=== PATIENT | male | born 1945 | race Caucasian/White ===

== ENCOUNTER → 2016-06-21 | Outpatient (CLI) | payer MEDICARE ==
[2015-11-25 12:00] VITALS: BP 106/69
[~2016-06-21] MED LIST: ALFU10TA3 PO; ALLO100T PO; ALLO300T PO; ALPR0.254 PO; AMIT25TA PO; AMLO10TA2 PO; AMLO5TAB2 PO; ASPI81TA9 PO; ATOR10TA60 PO; BUSP10TA PO; BUSP5TAB PO; CARI350T14 PO; CELE200C PO; CITA20TA9 PO; CLON0.2T PO; CLON0.5T3 PO; CLOP75TA PO; CLOP75TA27 PO; COLC0.6T34 PO; DIGO0.25 PO; DIGO125T PO; DIGO250T PO; FURO-68 PO; FURO40TA4 PO; IBUP200T77 PO; LABE200T2 PO; LEUP30SY IM; LEVO25TA4 PO; LEVO500T38 PO; LEVO50TA PO; LEVO50TA5 PO; LISI1TAB5 PO; MINO10TA PO; OXYC-323 PO; PRED-220 PO; PROP150T2 PO; PROVENTIL HFA6.7 GM IH; THEO400T2 PO
--- NOTE | 2016-06-21 16:16 | RAD ---
CT of the chest without contrast, 06/21/2016: History: Interstitial lung disease, COPD Noncontrast scans were obtained and compared to a study from 03/04/2016. There are moderate reticular opacities involving primarily the periphery of both lungs. There is a lesser groundglass component. Mild bronchiectasis is present medially in the left upper lobe. The findings are compatible with interstitial lung disease/fibrosis and are unchanged since 03/04/2016. No new pulmonary opacities are seen. A calcified granuloma is present in the left upper lobe. There is no evidence of pleural fluid. An unhealed median sternotomy is evident. There are extensive coronary artery calcifications. There is moderate calcific plaquing of the thoracic aorta. Small mediastinal lymph nodes are present without definite pathologic enlargement. Several small intrarenal calculi and renal vascular calcifications are present. A 3 cm cyst is present in the left kidney. Moderate multilevel degenerative changes are present in the spine. IMPRESSION: 1. Chronic interstitial lung disease and fibrosis, unchanged since 03/04/2016. 2. Extensive coronary artery disease. PQRS Compliance Statement: One or more of the following individualized dose reduction techniques were utilized for this examination: 1. Automated exposure control 2. Adjustment of the mA and/or kV according to patient size 3. Use of iterative reconstruction technique
== END | disposition home or self-care (01) ==
LOC: CT 12:25
PROVIDERS: ATTEND Internal Medicine Critical Care Medicine
DX: J84.9 Interstitial pulmonary disease, unspecified (principal); J44.9 Chronic obstructive pulmonary disease, unspecified; I25.10 Atherosclerotic heart disease of native coronary artery without angina pectoris
CPT/HCPCS: 71250

== ENCOUNTER → 2017-01-06 | Outpatient (CLI) | payer MEDICARE ==
[2015-11-25 12:00] VITALS: BP 106/69
[~2017-01-06] MED LIST changes: +ASPI-612 PO; -ASPI81TA9 PO; -CLOP75TA27 PO; +CLOP75TA57 PO; -LEVO500T38 PO; +LEVO500T59 PO
--- NOTE | 2017-01-06 10:28 | RAD ---
INDICATION: Interstitial lung disease COMPARISON: 06/21/2016 TECHNIQUE: Axial CT images obtained through the chest. No intravenous contrast. FINDINGS: Poststernotomy changes again seen. Severe coronary artery calcific atherosclerosis. Repeat demonstration of interstitial changes to the lungs with peripheral reticulation as well as some suspected regions of fibrosis. Overall severity is similar prior. Partially visualized liver appears low-attenuation. Heterogenous attenuation within the liver. Gallstones are suspected. 39 mm suspected cystic lesion left kidney. There are some suspected nonobstructive renal stones at partially visualized abdomen. Severe calcific atherosclerosis. There are some scattered mildly prominent lymph nodes in the mediastinum. For example mildly enlarged lymph node is again seen in precarinal region measuring 11 mm short axis. Degenerative changes of the spine. Mild L1 compression deformity again seen. IMPRESSION: 1. Repeat demonstration of chronic interstitial lung disease which overall appears similar in severity when compared to June 2016. The severity appears slightly increased when compared to 2013. 2. Heterogenous attenuation of the liver partially seen. This could be secondary to geographic regions of focal fat but if the patient has any history or risk factors for neoplasm a follow-up CT or MRI liver protocol could further evaluate to ensure that there is not an infiltrative hepatic lesion. 3. Suspected bilateral nonobstructive renal stones and left renal cystic lesion at partially visualized kidneys. PQRS Compliance Statement: One or more of the following individualized dose reduction techniques were utilized for this examination: 1. Automated exposure control 2. Adjustment of the mA and/or kV according to patient size 3. Use of iterative reconstruction technique
== END | disposition home or self-care (01) ==
LOC: CT 07:09
PROVIDERS: ATTEND Internal Medicine Critical Care Medicine
DX: J84.9 Interstitial pulmonary disease, unspecified (principal); M47.896 Other spondylosis, lumbar region; N20.0 Calculus of kidney; I70.8 Atherosclerosis of other arteries; R59.9 Enlarged lymph nodes, unspecified
CPT/HCPCS: 71250

== ENCOUNTER → 2018-01-02 | Outpatient (CLI) | payer OTHER ==
[2015-11-25 12:00] VITALS: BP 106/69
[~2018-01-02] MED LIST changes: -AMLO10TA2 PO; +AMLO10TA6 PO; -AMLO5TAB2 PO; +AMLO5TAB7 PO; +CLON0.5T11 PO; -CLON0.5T3 PO; -LABE200T2 PO; +LABE200T4 PO; +LISI1TAB7 PO
--- NOTE | 2018-01-02 16:40 | RAD ---
CT of the chest without contrast, 01/02/2018: HISTORY: Interstitial lung disease. Noncontrast scans were obtained as requested and compared to a study from 01/06/2017. There is moderate calcific plaquing of the thoracic aorta with mild unchanged dilatation of the ascending aorta. Extensive coronary artery calcifications are present. The heart is mildly enlarged. Mediastinal lymph nodes of borderline size are stable. There are moderate reticular opacities involving primarily the periphery of both lungs. There are also patchy groundglass opacities bilaterally. Mild bronchiectasis is present in the left upper lobe. The findings are compatible with chronic interstitial lung disease/fibrosis and have shown no definite change since 01/06/2017. Granulomatous calcifications are present in the left chest. No acute pulmonary consolidation or mass is evident. No pleural fluid has developed. Several small bilateral intrarenal calculi are again noted. There is a small left renal cyst. Moderate multilevel degenerative changes are present in the spine. IMPRESSION: 1. Moderate chronic interstitial lung disease/fibrosis, unchanged since 01/06/2017. 2. Cardiomegaly with aortic atherosclerosis and extensive coronary artery calcifications. PQRS Compliance Statement: One or more of the following individualized dose reduction techniques were utilized for this examination: 1. Automated exposure control 2. Adjustment of the mA and/or kV according to patient size 3. Use of iterative reconstruction technique Electronically signed by: Malik Butler MD (01/02/2018 4:37 PM) [facility]
== END | disposition home or self-care (01) ==
LOC: CT 16:19
PROVIDERS: ATTEND Internal Medicine Critical Care Medicine
DX: I25.10 Atherosclerotic heart disease of native coronary artery without angina pectoris (principal); I70.0 Atherosclerosis of aorta; I51.7 Cardiomegaly; N28.1 Cyst of kidney, acquired; N20.0 Calculus of kidney
CPT/HCPCS: 71250

== ENCOUNTER → 2018-01-19 | Outpatient (CLI) | payer OTHER ==
[2015-11-25 12:00] VITALS: BP 106/69
[~2018-01-19] MED LIST changes: +ZOLPIDEM 5 MG TABLET. PO ONE
--- NOTE | 2018-01-20 10:10 | SLEEP ---
DATE OF STUDY: 01/19/2018 SLEEP STUDY DATE OF STUDY: 01/19/2018. ATTENDING PHYSICIAN: Dr. Maye Mueller. The patient is 72 years old who weighs 204 pounds with a BMI of 30. The patient's Cavour score was 11. The patient had sleep study 5 years ago and was diagnosed with RYANNE and has been on 14 cm CPAP, but does not wear it. Another split-night study was performed. During the night study, the patient spent 410 minutes in bed and slept for 229 minutes with a low sleep efficiency of 56%. Sleep latency was 46 minutes with a REM latency of 283 minutes. Overall, sleep architecture showed normal stage 1 sleep, increased stage 2 sleep, absent slow wave and reduced REM sleep, which was 10% of the total sleep time. During the initial diagnostic portion of the study, the patient slept for 77 minutes. During that time, there were no obstructive mixed or central apneas, but 60 hypopneas. The patient's AHI for the diagnostic portion was 47 per hour, with a supine AHI of 47 per hour as well and REM sleep was not observed. EKG monitoring revealed normal sinus rhythm with an average heart rate of 83 beats per minute. PVCs were seen throughout. Nocturnal oximetry study revealed an average oxygen saturation was 87%, the lowest was 78%; 33% of time, oxygen saturation remained between 80% and 89%. PLMS were seen at index of 14 per hour and 2 per hour caused EEG arousals. The patient met the criteria for CPAP initiation. He was unable to tolerate CPAP pressure of less than 14 cm water. At a final CPAP pressure of 17 cm water, the patient slept for 90 minutes. The patient had supine sleep throughout and REM sleep was also observed. The patient's AHI was reduced to 0 per hour and oxygen saturation remained above 90%. The patient used medium-sized full-face mask. IMPRESSION: 1. Severe sleep apnea-hypopnea syndrome with an apnea-hypopnea index of 47 per hour. 2. Nocturnal hypoxia secondary to obstructive sleep apnea, but resolved with CPAP. 3. Abnormal EKG with premature ventricular contractions seen throughout, but no sustained arrhythmias observed. 4. Mild periodic limb movements of sleep without any significant EEG arousals. This does not need to be treated. RECOMMENDATIONS: 1. CPAP at 17 cm water completely eliminated the patient's sleep apnea and should be used on a nightly basis. 2. Follow up in 4-6 weeks to assess compliance with CPAP and to document clinical improvement. 3. Weight loss is strongly advised. 4. Avoid [employer] depressants. 5. Cautioned regarding driving until symptoms of sleep apnea resolve with the use of CPAP. 6. Follow up with Cardiology if clinically indicated regarding abnormal EKG. LINDY TORRES MD DR: ARIE/velia JOB#: [id number] / [id number] MAYE Fung MD
== END | disposition home or self-care (01) ==
LOC: SLPLAB 18:26
PROVIDERS: ATTEND Internal Medicine Critical Care Medicine
DX: G47.33 Obstructive sleep apnea (adult) (pediatric) (principal); G47.34 Idiopathic sleep related nonobstructive alveolar hypoventilation; G47.61 Periodic limb movement disorder; R94.31 Abnormal electrocardiogram [ECG] [EKG]
CPT/HCPCS: 95810

== ENCOUNTER → 2018-01-21 | Outpatient (CLI) | payer OTHER ==
[2015-11-25 12:00] VITALS: BP 106/69
[~2018-01-21] MED LIST changes: -ZOLPIDEM 5 MG TABLET. PO ONE
[2018-01-21 11:06] LABS: CALCIUM 9.7 mg/dL (8.5-10.1); CREATININE 1.1 mg/dL (0.7-1.3); POTASSIUM 3.6 mmol/L (3.5-5.1)
== END | disposition home or self-care (01) ==
LOC: LAB 10:28
PROVIDERS: ATTEND Internal Medicine Nephrology
DX: I11.0 Hypertensive heart disease with heart failure (principal); I50.9 Heart failure, unspecified; I25.5 Ischemic cardiomyopathy; Z68.27 Body mass index [BMI] 27.0-27.9, adult
CPT/HCPCS: 36415; 80048

== ENCOUNTER 2018-02-09 10:19 | Observation (INO) | payer OTHER ==
[~2018-02-09] VITALS: Ht 175.3 cm; Wt 92.5 kg
[~2018-02-09 10:19] MED LIST changes: -OXYC-323 PO; +OXYC1TAB15 PO
--- NOTE | 2018-02-09 10:41 | PHYS DOC ---
Past Medical History Past Medical History: Anxiety, Cancer, CHF, COPD, Hypertension, Hypothyroid, Kidney Stone, [place], Vascular Disease, Other Additional Past Medical Histor: PROSTATE CA, GOUT Past Surgical History: Coronary Bypass Surgery, Other Additional Past Surgical Histo: STENTS, right shoulder surgery Alcohol Use: Rarely Drug Use: None Adult General Chief Complaint Chief Complaint: CHEST PAIN HPI HPI Patient is a 72-year-old white male with a past history of coronary artery disease, who presents to the emergency department for evaluation. The patient states that for the past 3 days he has been having intermittent chest pressure, radiating to her shoulders bilaterally, worse with exertion. He has had increased shortness of breath. Has not had any nausea or vomiting. His pain is improved this morning. Exertion seems to worsen his pain, rest seems to relieve his pain. He was recently started on oxygen due to interstitial lung disease. He states the pain feels somewhat similar to his prior cardiac episodes. He has not had any alleviating or exacerbating factors to his symptoms other than as mentioned above. Review of Systems Review of Systems Constitutional: Denies fever or chills [] Eyes: Denies change in visual acuity, redness, or eye pain [] HENT: Denies nasal congestion or sore throat [] Respiratory: Denies cough or pleuritic pain.[] Cardiovascular: No additional information not addressed in HPI [] GI: Denies abdominal pain, nausea, vomiting, bloody stools or diarrhea [] : Denies dysuria or hematuria [] Musculoskeletal: Denies back pain or joint pain [] Integument: Denies rash or skin lesions [] Neurologic: Denies headache, focal weakness or sensory changes [] Endocrine: Denies polyuria or polydipsia [] All other systems were reviewed and found to be within normal limits, except as documented in this note. Current Medications Current Medications Current Medications Medications (Trade) Dose Ordered Sig/Susu Start Time Stop Time Status Last Admin Dose Admin Aspirin (Children'S Aspirin) 324 mg 1X ONCE 02/09/18 10:45 02/09/18 10:46 DC 02/09/18 11:06 324 MG Nitroglycerin (Nitro-Bid Oint) 1 inch 1X ONCE 02/09/18 10:45 02/09/18 10:46 DC 02/09/18 11:07 1 INCH Allergies Allergies Allergies Coded Allergies Type Severity Reaction Last Updated Verified tamsulosin Adverse Reaction Intermediate Nausea and Vomiting 11/17/15 Yes Physical Exam Physical Exam PHYSICAL EXAM: CONSTITUTIONAL: Well developed, well nourished HEAD: normocephalic, atraumatic EENT: PERRL, EOMI. Conjunctivae normal color, sclerae non-icteric; moist mucous membranes. NECK: Supple, non-tender; no meningismus. LUNGS: Scattered crackles in all lung contreras, consistent with the patient's history of interstitial lung disease, breathing even and unlabored. Normal air movement. HEART: Regular rate and rhythm, no murmur CHEST: No deformity; non-tender ABDOMEN: The abdomen is soft, and non-tender, no masses or bruits. EXTREM: Normal ROM; no deformity, no calf tenderness. Normal pulses palpable in all extremities. There is no pedal edema. SKIN: No rash; no diaphoresis NEURO: Alert; normal speech and cognition; CN's grossly intact; strength grossly intact without focal deficit. BACK: No CVA TTP. Current Patient Data Vital Signs Vital Signs Date Time Temp Pulse Resp B/P (MAP) Pulse Ox O2 Delivery O2 Flow Rate FiO2 02/09/18 11:09 92 16 114/70 (85) 97 Nasal Cannula 2.0 Lab Values Laboratory Tests Test 02/09/18 10:35 White Blood Count 7.3 x10^3/uL (4.0-11.0) Red Blood Count 4.38 x10^6/uL (4.30-5.70) Hemoglobin 15.0 g/dL (13.0-17.5) Hematocrit 43.3 % (39.0-53.0) Mean Corpuscular Volume 99 fL (79-100) Mean Corpuscular Hemoglobin 34 pg (25-35) Mean Corpuscular Hemoglobin Concent 35 g/dL (31-37) Red Cell Distribution Width 15.0 % (11.5-14.5) H Platelet Count 118 x10^3/uL (140-400) L Neutrophils (%) (Auto) 72 % (31-73) Lymphocytes (%) (Auto) 13 % (24-48) L Monocytes (%) (Auto) 9 % (0-9) Eosinophils (%) (Auto) 6 % (0-3) H Basophils (%) (Auto) 0 % (0-3) Neutrophils # (Auto) 5.3 x10^3uL (1.8-7.7) Lymphocytes # (Auto) 0.9 x10^3/uL (1.0-4.8) L Monocytes # (Auto) 0.7 x10^3/uL (0.0-1.1) Eosinophils # (Auto) 0.4 x10^3/uL (0.0-0.7) Basophils # (Auto) 0.0 x10^3/uL (0.0-0.2) Platelet Estimate Decreased (ADEQUATE) Large Platelets Few Poikilocytosis Slight Anisocytosis Slight Tear Drop Cells Occ Sodium Level 138 mmol/L (136-145) Potassium Level 3.4 mmol/L (3.5-5.1) L Chloride Level 100 mmol/L (98-107) Carbon Dioxide Level 28 mmol/L (21-32) Anion Gap 10 (6-14) Blood Urea Nitrogen 18 mg/dL (8-26) Creatinine 1.2 mg/dL (0.7-1.3) Estimated GFR (Cockcroft-Gault) 59.7 BUN/Creatinine Ratio 15 (6-20) Glucose Level 165 mg/dL (70-99) H Calcium Level 9.1 mg/dL (8.5-10.1) Total Bilirubin 0.5 mg/dL (0.2-1.0) Aspartate Amino Transferase (AST) 16 U/L (15-37) Alanine Aminotransferase (ALT) 34 U/L (16-63) Alkaline Phosphatase 118 U/L (46-116) H Creatine Kinase 70 U/L (39-308) Creatine Kinase MB (Mass) 1.4 ng/mL (0.0-3.6) Creatine Kinase MB Relative Index % (0-4) Troponin I Quantitative 0.017 ng/mL (0.000-0.055) AV-Yux-M-Type Natriuretic Peptide 387 pg/mL (0-124) H Total Protein 6.8 g/dL (6.4-8.2) Albumin 3.8 g/dL (3.4-5.0) Albumin/Globulin Ratio 1.3 (1.0-1.7) Laboratory Tests 02/09/18 10:35 Laboratory Tests 02/09/18 10:35 EKG EKG [Normal sinus rhythm at a rate of 73 bpm, left axis deviation, normal intervals , nonspecific ST/T changes, with lateral T wave inversion in the limb leads. EKG is not significant change compared to patient's prior EKG from 2016.] Radiology/Procedures Radiology/Procedures [PROCEDURE: PORTABLE CHEST 1V EXAM: AP View of the chest DATE: 02/09/2018 10:35 AM INDICATION: CHEST PAIN FOR THREE DAYS COMPARISON: Chest CT 01/02/2018 chest radiograph 12/19/2015 FINDINGS/ IMPRESSION: Cardiomediastinal silhouette is stable. Bilateral diffuse interstitial opacities, grossly similar to prior CT. No definite superimposed lobar consolidation is identified. Left upper lobe calcified granuloma is seen. No pleural effusion or pneumothorax.] Course & Med Decision Making Course & Med Decision Making Pertinent Labs and Imaging studies reviewed. (See chart for details) [11:35 AM: The patient's condition remains stable. He is pain-free now. I discussed case with his PCP, who will admit the patient for further evaluation. I also spoke with Dr. Guardado will see the patient as well.] Dragon Disclaimer Dragon Disclaimer This electronic medical record was generated, in whole or in part, using a voice recognition dictation system. Departure Departure Impression: Primary Impression: Chest pain Additional Impression: CAD (coronary artery disease) Disposition: ADMITTED INPATIENT Condition: STABLE Referrals: MAYE WHITT MD (PCP) Problem Qualifiers MAYE ARTEAGA MD Feb 09, 2018 10:41
--- NOTE | 2018-02-09 10:44 | EKG ---
[facility] [address] [place] [address] Test Date: 2018-02-09 Test Time: 10:26:59 Pat Name: KRYSTIAN VELEZ Department: Room: Gender: M Boat Captain: : 1945 Requested By: MAYE ARTEAGA Order Number: [id number] Reading MD: Matteo Goodrich Measurements Intervals Uriah Rate: 72 P: -90 OH: 184 QRS: -51 QRSD: 108 T: 119 QT: 410 QTc: 455 Interpretive Statements SINUS RHYTHM PROLONGED OH INTERVAL ABNORMAL LEFT AXIS DEVIATION INCOMPLETE RIGHT BUNDLE BRANCH BLOCK LVH WITH REPOLARIZATION ABNORMALITY QRS(T) CONTOUR ABNORMALITY CONSIDER ANTEROLATERAL MYOCARDIAL DAMAGE ABNORMAL ECG Electronically Signed On 02-09-2018 11:09:02 DISPATCH OFFICER by Matteo Goodrich
[2018-02-09] MEDS ORDERED: ASPIRIN CHEWABLE 81 MG TABLET. PO ONE (10:45)
[2018-02-09] MEDS ORDERED: NITROGLYCERIN OINT 1 GM PACKET. TP ONE (10:45)
[2018-02-09 10:49] LABS: BASO % 0 % (0-3); EOS # 0.4 x10^3/uL (0.0-0.7); EOS % 6 % (0-3); HEMATOCRIT 43.3 % (39.0-53.0); LYMPH # 0.9 x10^3/uL (1.0-4.8); LYMPH % 13 % (24-48); MEAN CORPUSCULAR HEMOGLOBIN 34 pg (25-35); MEAN CORPUSCULAR HGB CONC 35 g/dL (31-37); MEAN CORPUSCULAR VOLUME 99 fL (79-100); MONO # 0.7 x10^3/uL (0.0-1.1); MONO % 9 % (0-9); NEUT # 5.3 x10^3uL (1.8-7.7); NEUT % 72 % (31-73); PLATELET COUNT 118 x10^3/uL (140-400); RED BLOOD COUNT 4.38 x10^6/uL (4.30-5.70); WHITE BLOOD COUNT 7.3 x10^3/uL (4.0-11.0)
[2018-02-09 11:03] LABS: CALCIUM 9.1 mg/dL (8.5-10.1); CREATININE 1.2 mg/dL (0.7-1.3); GFR 59.7; POTASSIUM 3.4 mmol/L (3.5-5.1)
[2018-02-09 11:09] LABS: ALBUMIN 3.8 g/dL (3.4-5.0); ALBUMIN/GLOBULIN RATIO 1.3 (1.0-1.7); TOTAL BILIRUBIN 0.5 mg/dL (0.2-1.0); TOTAL PROTEIN 6.8 g/dL (6.4-8.2)
[2018-02-09 11:17] LABS: CREATINE KINASE 70 U/L (39-308)
--- NOTE | 2018-02-09 11:23 | RAD ---
EXAM: AP View of the chest DATE: 02/09/2018 10:35 AM INDICATION: CHEST PAIN FOR THREE DAYS COMPARISON: Chest CT 01/02/2018 chest radiograph 12/19/2015 FINDINGS/ IMPRESSION: Cardiomediastinal silhouette is stable. Bilateral diffuse interstitial opacities, grossly similar to prior CT. No definite superimposed lobar consolidation is identified. Left upper lobe calcified granuloma is seen. No pleural effusion or pneumothorax. Electronically signed by: Armando Michelle MD (02/09/2018 11:19 AM) [id number]
[2018-02-09 11:25] LABS: PLT ESTIMATE DECREASED (ADEQUATE)
[2018-02-09 11:26] LABS: ANISOCYTOSIS SLIGHT; POIKILOCYTOSIS SLIGHT; TEAR DROP CELLS OCC
--- NOTE | 2018-02-09 12:33 | PDOC2 ---
CONSULT Date of Consult Date of Consult DATE: 02/09/18 TIME: 12:30 Reason for Consult Reason for Consult: Chest pain Referring Physician Referring Physician: Alvarado Brennan MD Identification/Chief Complaint Problems: (1) Chest pain History of Present Illness Reason for Visit: Mr. Tillman, 72yo M, presents to ER with chest pain that started on ( Feb 05). His chest pain started while he was working on his yard doing his house chore, and came with his hands turning blue. He described that the pain had been intense and constant radiating to his left arm for couple days, and improved from Friday till this morning. This morning, there is minimal pain that is not constant. He has been resting and taking oxygen/medication at home which made it better. The pain is similar to what he had 2016 when he had bypass surgery. Also complains of cough with sputum, SOB and lightheadedness but denies n/v/d Past Medical History Cardiovascular: CAD, CHF, HTN, [place], Hyperlipidemia Pulmonary: Bronchitis, COPD, Pneumonia, Other (interstitial lung disease) GI: GERD Musculoskeletal: Osteoarthritis Rheumatologic: Gout Renal/: Prostate Ca. Past Surgical History Past Surgical History: CABG ("6-way bypass" (2016)), Other (R. shoulder replacement) Social History Quit (quit 2016. 40 ppd previously) ALCOHOL: rare Drugs: None Lives: with Family Current Problem List Problem List Problems Medical Problems: (1) CAD (coronary artery disease) Status: Acute (2) Chest pain Status: Acute Current Medications Current Medications Current Medications Aspirin (Children'S Aspirin) 324 mg 1X ONCE PO Last administered on at 11:06; Start 02/09/18 at 10:45; Stop 02/09/18 at 10:46; Status DC Nitroglycerin (Nitro-Bid Oint) 1 inch 1X ONCE TP Last administered on at 11:07; Start 02/09/18 at 10:45; Stop 02/09/18 at 10:46; Status DC Active Scripts Active Reported Prednisone (Prednisone) 10 Mg Tablet 10 Mg PO 1/2TAB DAILY Lisinopril-Hctz 20-25 Mg Tab (Lisinopril/Hydrochlorothiazide) 1 Each Tablet 1 Tab PO DAILY Lasix (Furosemide) 40 Mg Tablet 40 Mg PO DAILY Buspirone Hcl 5 Mg Tablet 5 Mg PO 3TABS PO DAILY Carisoprodol 350 Mg Tablet 350 Mg PO 3TABS PO DAILY PRN Clopidogrel (Clopidogrel Bisulfate) 75 Mg Tablet 75 Mg PO DAILY Propafenone Hcl 150 Mg Tablet 150 Mg PO BID Amlodipine Besylate 5 Mg Tablet 5 Mg PO DAILY Clonidine Hcl 0.2 Mg Tablet 0.2 Mg PO 3TABS PO DAILY Synthroid (Levothyroxine Sodium) 50 Mcg Tablet 1 Tab PO DAILY Lisinopril-Hctz 20-12.5 Mg Tab (Lisinopril/Hydrochlorothiazide) 1 Each Tablet 1 Tab PO HS Allopurinol 100 Mg Tablet 1 Tab PO DAILY Atorvastatin Calcium 10 Mg Tablet 10 Mg PO HS Allopurinol 300 Mg Tablet 1 Tab PO HS Clonazepam 0.5 Mg Tablet 0.5 Mg PO 1 1/2 TABS PO DAILY Celexa (Citalopram Hydrobromide) 20 Mg Tablet 20 Mg PO DAILY Amitriptyline Hcl 25 Mg Tablet 25 Mg PO HS Alprazolam 0.25 Mg Tablet 0.25 Mg PO QID Celebrex (Celecoxib) 200 Mg Capsule 200 Mg PO 2TABS PO DAILY Allergies Allergies: Coded Allergies: tamsulosin (Verified Adverse Reaction, Intermediate, Nausea and Vomiting, 11/17/15) ROS Respiratory: YES: Cough (w/ sputum), Shortness of breath Cardiovascular: yes Chest Pain Physical Exam General: Alert, Oriented X3, Cooperative Lungs: Clear to auscultation (on oxygen), Normal air movement Heart: Regular rate, Normal S1, Normal S2, No murmurs MUSCULOSKELETAL: No swelling, No muscular tenderness noted Vitals VITALS Vital Signs Date Time Temp Pulse Resp B/P (MAP) Pulse Ox O2 Delivery O2 Flow Rate FiO2 02/09/18 11:09 92 16 114/70 (85) 97 Nasal Cannula 2.0 Labs Labs Laboratory Tests Test 02/09/18 10:35 White Blood Count 7.3 x10^3/uL (4.0-11.0) Red Blood Count 4.38 x10^6/uL (4.30-5.70) Hemoglobin 15.0 g/dL (13.0-17.5) Hematocrit 43.3 % (39.0-53.0) Mean Corpuscular Volume 99 fL (79-100) Mean Corpuscular Hemoglobin 34 pg (25-35) Mean Corpuscular Hemoglobin Concent 35 g/dL (31-37) Red Cell Distribution Width 15.0 % (11.5-14.5) Platelet Count 118 x10^3/uL (140-400) Neutrophils (%) (Auto) 72 % (31-73) Lymphocytes (%) (Auto) 13 % (24-48) Monocytes (%) (Auto) 9 % (0-9) Eosinophils (%) (Auto) 6 % (0-3) Basophils (%) (Auto) 0 % (0-3) Neutrophils # (Auto) 5.3 x10^3uL (1.8-7.7) Lymphocytes # (Auto) 0.9 x10^3/uL (1.0-4.8) Monocytes # (Auto) 0.7 x10^3/uL (0.0-1.1) Eosinophils # (Auto) 0.4 x10^3/uL (0.0-0.7) Basophils # (Auto) 0.0 x10^3/uL (0.0-0.2) Platelet Estimate Decreased (ADEQUATE) Large Platelets Few Poikilocytosis Slight Anisocytosis Slight Tear Drop Cells Occ Sodium Level 138 mmol/L (136-145) Potassium Level 3.4 mmol/L (3.5-5.1) Chloride Level 100 mmol/L (98-107) Carbon Dioxide Level 28 mmol/L (21-32) Anion Gap 10 (6-14) Blood Urea Nitrogen 18 mg/dL (8-26) Creatinine 1.2 mg/dL (0.7-1.3) Estimated GFR (Cockcroft-Gault) 59.7 BUN/Creatinine Ratio 15 (6-20) Glucose Level 165 mg/dL (70-99) Calcium Level 9.1 mg/dL (8.5-10.1) Total Bilirubin 0.5 mg/dL (0.2-1.0) Aspartate Amino Transf (AST/SGOT) 16 U/L (15-37) Alanine Aminotransferase (ALT/SGPT) 34 U/L (16-63) Alkaline Phosphatase 118 U/L (46-116) Creatine Kinase 70 U/L (39-308) Creatine Kinase MB (Mass) 1.4 ng/mL (0.0-3.6) Creatine Kinase MB Relative Index % (0-4) Troponin I Quantitative 0.017 ng/mL (0.000-0.055) IB-Fhg-F-Type Natriuretic Peptide 387 pg/mL (0-124) Total Protein 6.8 g/dL (6.4-8.2) Albumin 3.8 g/dL (3.4-5.0) Albumin/Globulin Ratio 1.3 (1.0-1.7) Laboratory Tests Test 02/09/18 10:35 White Blood Count 7.3 x10^3/uL (4.0-11.0) Red Blood Count 4.38 x10^6/uL (4.30-5.70) Hemoglobin 15.0 g/dL (13.0-17.5) Hematocrit 43.3 % (39.0-53.0) Mean Corpuscular Volume 99 fL (79-100) Mean Corpuscular Hemoglobin 34 pg (25-35) Mean Corpuscular Hemoglobin Concent 35 g/dL (31-37) Red Cell Distribution Width 15.0 % (11.5-14.5) Platelet Count 118 x10^3/uL (140-400) Neutrophils (%) (Auto) 72 % (31-73) Lymphocytes (%) (Auto) 13 % (24-48) Monocytes (%) (Auto) 9 % (0-9) Eosinophils (%) (Auto) 6 % (0-3) Basophils (%) (Auto) 0 % (0-3) Neutrophils # (Auto) 5.3 x10^3uL (1.8-7.7) Lymphocytes # (Auto) 0.9 x10^3/uL (1.0-4.8) Monocytes # (Auto) 0.7 x10^3/uL (0.0-1.1) Eosinophils # (Auto) 0.4 x10^3/uL (0.0-0.7) Basophils # (Auto) 0.0 x10^3/uL (0.0-0.2) Platelet Estimate Decreased (ADEQUATE) Large Platelets Few Poikilocytosis Slight Anisocytosis Slight Tear Drop Cells Occ Sodium Level 138 mmol/L (136-145) Potassium Level 3.4 mmol/L (3.5-5.1) Chloride Level 100 mmol/L (98-107) Carbon Dioxide Level 28 mmol/L (21-32) Anion Gap 10 (6-14) Blood Urea Nitrogen 18 mg/dL (8-26) Creatinine 1.2 mg/dL (0.7-1.3) Estimated GFR (Cockcroft-Gault) 59.7 BUN/Creatinine Ratio 15 (6-20) Glucose Level 165 mg/dL (70-99) Calcium Level 9.1 mg/dL (8.5-10.1) Total Bilirubin 0.5 mg/dL (0.2-1.0) Aspartate Amino Transf (AST/SGOT) 16 U/L (15-37) Alanine Aminotransferase (ALT/SGPT) 34 U/L (16-63) Alkaline Phosphatase 118 U/L (46-116) Creatine Kinase 70 U/L (39-308) Creatine Kinase MB (Mass) 1.4 ng/mL (0.0-3.6) Creatine Kinase MB Relative Index % (0-4) Troponin I Quantitative 0.017 ng/mL (0.000-0.055) PL-Blt-Z-Type Natriuretic Peptide 387 pg/mL (0-124) Total Protein 6.8 g/dL (6.4-8.2) Albumin 3.8 g/dL (3.4-5.0) Albumin/Globulin Ratio 1.3 (1.0-1.7) Assessment/Plan Assessment/Plan The patient will get Lexiscan MPI for his chest pain. We will continue to monitor. Pt may need to have a R&L Heart Cath to evaluate his Pulmonary HTN. Thank you for allowing me to see this patient PATRICIA SPARKS MD Feb 09, 2018 12:32
[2018-02-09 12:48] VITALS: BP 134/79
[2018-02-09] MEDS ORDERED: BUSP10TA PO (14:14)
[2018-02-09] MEDS ORDERED: PRED2.5T PO (14:14)
[2018-02-09] MEDS ORDERED: TIOT18CA IH (14:14)
--- NOTE | 2018-02-09 14:55 | CONS ---
DATE OF CONSULTATION: PULMONARY CONSULTATION ATTENDING PHYSICIAN: Dr. Alvarado Mueller. REASON FOR CONSULTATION: Dyspnea, chest pain. HISTORY OF PRESENT ILLNESS: The patient is a 72-year-old male who follows me at the office. He has history of steroid responsive chronic interstitial lung disease, suggesting a pattern of NSIP versus DIP related to past history of tobaccoism. The patient has been on prednisone 5 mg daily. Recently, he had called that he was having more shortness of breath. Then, we did a 6-minute walk test and it showed that he required oxygen. He was placed on 2 liters at rest and 3 liters with exercise. His CT of the chest was reviewed dated 01/02 and compared with the previous one from 12/31. There is unchanged chronic persistent interstitial infiltrates without any significant change. The patient was brought into the hospital with chest pain, which was substernal and radiating to the left side. He has some numbness in his hands as well. No headaches, no nausea or vomiting. He has some pain going to his shoulders as well. No increased leg edema. The patient also has been noticed to have increased cough. He has been on lisinopril and the cough is accentuated since then especially with the recent increase in the dose by his PCP. PAST MEDICAL HISTORY: History of COPD, history of hypertension, history of chronic interstitial lung disease with an NSIP pattern, history of renal stone, history of peripheral vascular disease. PAST SURGICAL HISTORY: Prostate cancer, gout and bypass surgery and stents and right shoulder surgery. SOCIAL HISTORY: History of tobacco use in the past, but quit at least 5-6 years ago. ALLERGIES: TAMSULOSIN. MEDICATIONS: Reviewed as listed in the MRAD. REVIEW OF SYSTEMS: Twelve-point system obtained. Pertinent positives discussed in my history of present illness, otherwise noncontributory. All systems that were negative were reviewed as well. PHYSICAL EXAMINATION: VITAL SIGNS: Stable. His pulse ox is 94% on 2 liters. NECK: Supple. LUNGS: Diminished breath sounds with occasional crackles. CARDIOVASCULAR: Regular rate and rhythm. ABDOMEN: Soft, nontender. EXTREMITIES: With no pitting edema. LABORATORY DATA: Reviewed. White cell count 7.3, hemoglobin 15.0, platelets are 118. BUN and creatinine 18 and 1.2. IMPRESSION: 1. 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 The recent CT chest shows unchanged chronic interstitial infiltrates compared to a year ago while he is maintained on 5 mg of prednisone. He has been recently prescribed oxygen due to increased demands. 2. Chest pain with radiation to the shoulders and left chest wall along with numbness of the hands. Suspect unstable angina and may benefit from a cardiac catheterization. 3. Obstructive sleep apnea with excellent compliance with CPAP. 4. Chronic cough, which has been accentuated since been placed on lisinopril and especially when the dose has been recently increased. Consider other antihypertensive medications. RECOMMENDATION: 1. Continue with present oxygen as recently prescribed. 2. Cardiology followup and recommendations. Stress test is scheduled. I would also consider doing cardiac catheterization to make sure there is no significant coronary artery disease. 3. If the cardiac workup is negative, then we will do CT angio. 4. Consider changing SHABNAM inhibitor, lisinopril to a different antihypertensive medication. 5. Continue prednisone 5 mg at home dose. 6. Continue CPAP at bedtime. 7. Discussed with RN and discussed with the patient's . We will follow along with you. LINDY TORRES MD DR: ARIE/velia JOB#: [id number] / [id number]
[2018-02-09] MEDS ORDERED: CITALOPRAM 20 MG TABLET. PO PRN (16:45)
[2018-02-09 19:20] VITALS: BP 130/74
[2018-02-09] MEDS: ATORVASTATIN CALCIUM 10 MG TABLET. PO SCH (20:54)
[2018-02-09] MEDS: cloNIDine HCL 0.2 MG TABLET PO SCH (20:54)
[2018-02-09] MEDS: ALLOPURINOL 300 MG TABLET. PO SCH (20:54)
[2018-02-09] MEDS: AMITRIPTYLINE HCL 25 MG TABLET. PO SCH (20:55)
[2018-02-09] MEDS: busPIRone 10 MG TABLET. PO SCH (20:55)
[2018-02-09] MEDS: ALPRAZolam 0.25 MG TABLET PO PRN ×2 (20:55→22:39)
[2018-02-09] MEDS ORDERED: CARISOPRODOL 350 MG TABLET PO PRN (21:00)
[2018-02-09] MEDS ORDERED: CARISOPRODOL 350 MG TABLET PO SCH (21:00)
[2018-02-09] MEDS ORDERED: PROPAFENONE 150 MG TABLET. PO PRN (22:00)
[2018-02-09 22:45] VITALS: BP 118/69
[2018-02-10 03:05] VITALS: BP 110/70
[2018-02-10] MEDS: LEVOTHYROXINE 50 MCG TABLET PO SCH (06:00)
[2018-02-10 07:00] VITALS: BP 128/71
[2018-02-10] MEDS: IPRATRPIUM/ALBUTEROL 0.5/2.5MG 3 ML NEBU. NEB SCH ×4 (07:31→19:37)
--- NOTE | 2018-02-10 08:12 | PDOC1 ---
H & P. HPI: Mr. Tillman is a 72 yo male with PMH of CAD s/p CABG x 6, interstitial lung disease, hypertension, hyperlipidemia, history of prostate cancer, RYANNE on CPAP, hypothyroidism, who presented yesterday for admission due to increasing shortness of breath and chest pain since . He reports that this pain is very similar to what he experienced prior to having his CABG. This information is from report as pt is unavailable at this time as he is off the floor for stress testing. ROS: Not performed as pt off floor at this time. PMH: As above FAMILY HX: Mother had heart disease. Father's history is unknown. SOCIAL HX: Former smoker for many years, denies significant alcohol use, denies recreational drug use. SURGICAL HX: CABG 6, right shoulder joint replacement, tonsillectomy MEDS: Reviewed and reconciled ALLERGIES: Reviewed PE: Not performed as pt off floor at this time. ASSESSMENT & PLAN: Chest pain concerning for unstable angina Coronary artery disease status post CABG Interstitial lung disease Hypertension Hyperlipidemia History of prostate cancer RYANNE on CPAP Hypothyroidism Dr. Guardado and Dr. Abbott following. Down for stress test now, possible pending results Reportedly has likely SHABNAM induced cough, lisinopril held. Monitor BP and change to losartan if needed. MARU FORD MD Feb 10, 2018 08:12
[2018-02-10] MEDS ORDERED: REGADENOSON 0.4 MG/5 ML DISP.SYRIN. IV ONE (08:15)
[2018-02-10] MEDS ORDERED: NON FORMULARY ITEM (Tiotropium Bromide (Spiriva) 2 INH) IH SCH (09:00)
[2018-02-10] MEDS ORDERED: ALLOPURINOL 100 MG TABLET. PO SCH (09:00)
[2018-02-10] MEDS: amLODIPine BESYLATE 5 MG TABLET PO SCH (09:30)
[2018-02-10] MEDS: FUROSEMIDE 40 MG TABLET. PO SCH (09:31)
[2018-02-10] MEDS: predniSONE 5 MG TABLET PO SCH (09:31)
[2018-02-10] MEDS: cloNIDine HCL 0.2 MG TABLET PO SCH ×3 (09:31→19:53)
[2018-02-10] MEDS: CLOPIDOGREL BISULFATE 75 MG TABLET PO SCH (09:32)
[2018-02-10] MEDS: clonazePAM 0.5 MG TABLET PO SCH (09:32)
--- NOTE | 2018-02-10 09:41 | PDOC ---
PROGRESS NOTES Subjective Subjective Patient seen and examined at bedside. He reports that his chest pain has been improving and almost minimal this morning. His main complaints are productive cough that is worse and pain in his L. hand/fingers especially last three digits. This L. hand/finger pain has been worsening since when he started feeling chest pain. Denies lightheadedness, n/v/d. He is doing pharmacological stress test this morning. Objective Objective Vital Signs Date Time Temp Pulse Resp B/P (MAP) Pulse Ox O2 Delivery O2 Flow Rate FiO2 02/10/18 07:35 94 Nasal Cannula 2.0 02/10/18 07:00 97.9 64 18 128/71 (90) 97.9 Intake and Output 02/10/18 07:00 Intake Total 300 ml Balance 300 ml Intake Oral 300 ml Physical Exam Heart: Regular rate, Normal S1, Normal S2, No murmurs Extremities: No edema, Other (Radial pulses +1/4 b/l. Mild cyanosis on his fingers b/l.) General: Alert, Oriented X3, Cooperative HEENT: Atraumatic Lungs: Clear to auscultation MUSCULOSKELETAL: No swelling Assessment Assessment Problems Medical Problems: (1) CAD (coronary artery disease) Status: Acute (2) Chest pain Status: Acute Plan Plan of Care The MPI shows an anterior defect and a decreased left ventricular ejection fraction. I have discussed the case with pulmonary and they would like to know the actual pulmonary artery pressure and I would like to know the actual coronary anatomy therefore I discussed the situation and options with the patient and he was decided to proceed with a heart catheterization. I will do a right and left heart catheter tomorrow morning. Comment Review of Relevant I have reviewed the following items burt (where applicable) has been applied. Labs Laboratory Tests Test 02/09/18 10:35 02/09/18 14:40 02/09/18 17:35 White Blood Count 7.3 x10^3/uL (4.0-11.0) Red Blood Count 4.38 x10^6/uL (4.30-5.70) Hemoglobin 15.0 g/dL (13.0-17.5) Hematocrit 43.3 % (39.0-53.0) Mean Corpuscular Volume 99 fL (79-100) Mean Corpuscular Hemoglobin 34 pg (25-35) Mean Corpuscular Hemoglobin Concent 35 g/dL (31-37) Red Cell Distribution Width 15.0 % (11.5-14.5) Platelet Count 118 x10^3/uL (140-400) Neutrophils (%) (Auto) 72 % (31-73) Lymphocytes (%) (Auto) 13 % (24-48) Monocytes (%) (Auto) 9 % (0-9) Eosinophils (%) (Auto) 6 % (0-3) Basophils (%) (Auto) 0 % (0-3) Neutrophils # (Auto) 5.3 x10^3uL (1.8-7.7) Lymphocytes # (Auto) 0.9 x10^3/uL (1.0-4.8) Monocytes # (Auto) 0.7 x10^3/uL (0.0-1.1) Eosinophils # (Auto) 0.4 x10^3/uL (0.0-0.7) Basophils # (Auto) 0.0 x10^3/uL (0.0-0.2) Platelet Estimate Decreased (ADEQUATE) Large Platelets Few Poikilocytosis Slight Anisocytosis Slight Tear Drop Cells Occ Sodium Level 138 mmol/L (136-145) Potassium Level 3.4 mmol/L (3.5-5.1) Chloride Level 100 mmol/L (98-107) Carbon Dioxide Level 28 mmol/L (21-32) Anion Gap 10 (6-14) Blood Urea Nitrogen 18 mg/dL (8-26) Creatinine 1.2 mg/dL (0.7-1.3) Estimated GFR (Cockcroft-Gault) 59.7 BUN/Creatinine Ratio 15 (6-20) Glucose Level 165 mg/dL (70-99) Calcium Level 9.1 mg/dL (8.5-10.1) Total Bilirubin 0.5 mg/dL (0.2-1.0) Aspartate Amino Transf (AST/SGOT) 16 U/L (15-37) Alanine Aminotransferase (ALT/SGPT) 34 U/L (16-63) Alkaline Phosphatase 118 U/L (46-116) Creatine Kinase 70 U/L (39-308) Creatine Kinase MB (Mass) 1.4 ng/mL (0.0-3.6) Creatine Kinase MB Relative Index % (0-4) Troponin I Quantitative 0.017 ng/mL (0.000-0.055) 0.022 ng/mL (0.000-0.055) 0.024 ng/mL (0.000-0.055) LC-Aja-R-Type Natriuretic Peptide 387 pg/mL (0-124) Total Protein 6.8 g/dL (6.4-8.2) Albumin 3.8 g/dL (3.4-5.0) Albumin/Globulin Ratio 1.3 (1.0-1.7) Laboratory Tests Test 02/09/18 10:35 02/09/18 14:40 02/09/18 17:35 White Blood Count 7.3 x10^3/uL (4.0-11.0) Red Blood Count 4.38 x10^6/uL (4.30-5.70) Hemoglobin 15.0 g/dL (13.0-17.5) Hematocrit 43.3 % (39.0-53.0) Mean Corpuscular Volume 99 fL (79-100) Mean Corpuscular Hemoglobin 34 pg (25-35) Mean Corpuscular Hemoglobin Concent 35 g/dL (31-37) Red Cell Distribution Width 15.0 % (11.5-14.5) Platelet Count 118 x10^3/uL (140-400) Neutrophils (%) (Auto) 72 % (31-73) Lymphocytes (%) (Auto) 13 % (24-48) Monocytes (%) (Auto) 9 % (0-9) Eosinophils (%) (Auto) 6 % (0-3) Basophils (%) (Auto) 0 % (0-3) Neutrophils # (Auto) 5.3 x10^3uL (1.8-7.7) Lymphocytes # (Auto) 0.9 x10^3/uL (1.0-4.8) Monocytes # (Auto) 0.7 x10^3/uL (0.0-1.1) Eosinophils # (Auto) 0.4 x10^3/uL (0.0-0.7) Basophils # (Auto) 0.0 x10^3/uL (0.0-0.2) Platelet Estimate Decreased (ADEQUATE) Large Platelets Few Poikilocytosis Slight Anisocytosis Slight Tear Drop Cells Occ Sodium Level 138 mmol/L (136-145) Potassium Level 3.4 mmol/L (3.5-5.1) Chloride Level 100 mmol/L (98-107) Carbon Dioxide Level 28 mmol/L (21-32) Anion Gap 10 (6-14) Blood Urea Nitrogen 18 mg/dL (8-26) Creatinine 1.2 mg/dL (0.7-1.3) Estimated GFR (Cockcroft-Gault) 59.7 BUN/Creatinine Ratio 15 (6-20) Glucose Level 165 mg/dL (70-99) Calcium Level 9.1 mg/dL (8.5-10.1) Total Bilirubin 0.5 mg/dL (0.2-1.0) Aspartate Amino Transf (AST/SGOT) 16 U/L (15-37) Alanine Aminotransferase (ALT/SGPT) 34 U/L (16-63) Alkaline Phosphatase 118 U/L (46-116) Creatine Kinase 70 U/L (39-308) Creatine Kinase MB (Mass) 1.4 ng/mL (0.0-3.6) Creatine Kinase MB Relative Index % (0-4) Troponin I Quantitative 0.017 ng/mL (0.000-0.055) 0.022 ng/mL (0.000-0.055) 0.024 ng/mL (0.000-0.055) HO-Pac-J-Type Natriuretic Peptide 387 pg/mL (0-124) Total Protein 6.8 g/dL (6.4-8.2) Albumin 3.8 g/dL (3.4-5.0) Albumin/Globulin Ratio 1.3 (1.0-1.7) Medications Current Medications Aspirin (Children'S Aspirin) 324 mg 1X ONCE PO Last administered on at 11:06; Start 02/09/18 at 10:45; Stop 02/09/18 at 10:46; Status DC Nitroglycerin (Nitro-Bid Oint) 1 inch 1X ONCE TP Last administered on at 11:07; Start 02/09/18 at 10:45; Stop 02/09/18 at 10:46; Status DC Allopurinol (Zyloprim) 100 mg DAILY PO ; Start 02/10/18 at 09:00; Status UNV Allopurinol (Zyloprim) 300 mg HS PO Last administered on 02/09/18at 20:54; Start 02/09/18 at 21:00 Alprazolam (Xanax) 0.25 mg PRN QID PRN PO ANXIETY / AGITATION Last administered on 02/09/18at 22:39; Start 02/09/18 at 16:45 Amitriptyline HCl (Elavil) 25 mg HS PO Last administered on 02/09/18at 20:55; Start 02/09/18 at 21:00 Amlodipine Besylate (Norvasc) 5 mg DAILY PO ; Start 02/10/18 at 09:00 Atorvastatin Calcium (Lipitor) 10 mg HS PO Last administered on 02/09/18at 20: 54; Start 02/09/18 at 21:00 Buspirone HCl (Buspar) 5 mg DAILYBFRLUN PO ; Start 02/10/18 at 11:30 Buspirone HCl (Buspar) 10 mg HS PO Last administered on 02/09/18at 20:55; Start 02/09/18 at 21:00 Carisoprodol (Soma) 350 mg TID PO ; Start 02/09/18 at 21:00; Stop 02/09/18 at 21:00; Status DC Citalopram Hydrobromide (CeleXA) 20 mg PRN DAILY PRN PO ANXIETY / AGITATION; Start 02/09/18 at 16:45 Clonidine HCl (Catapres) 0.2 mg TID PO Last administered on 02/09/18at 20:54; Start 02/09/18 at 21:00 Clopidogrel Bisulfate (Plavix) 75 mg DAILY PO ; Start 02/10/18 at 09:00 Furosemide (Lasix) 40 mg DAILY PO ; Start 02/10/18 at 09:00 Levothyroxine Sodium (Synthroid) 50 mcg DAILY06 PO ; Start 02/10/18 at 06:00 Prednisone (Prednisone) 5 mg DAILY PO ; Start 02/10/18 at 09:00 Propafenone HCl (Rythmol) 75 mg PRN DAILY PRN PO AFIB; Start 02/09/18 at 22:00 Non-Formulary Medication (Tiotropium [place] (Spiriva)) 2 inh DAILY IH ; Start 02/10/18 at 09:00; Status UNV Clonazepam (KlonoPIN) 0.75 mg DAILY PO ; Start 02/10/18 at 09:00 Albuterol/ Ipratropium (Duoneb) 3 ml RTQID NEB Last administered on 02/10/18at 07:31; Start 02/09/18 at 20:00 Carisoprodol (Soma) 350 mg PRN TID PRN PO MUSCLE PAIN Last administered on at 20:55; Start 02/09/18 at 21:00 Regadenoson (Lexiscan) 0.4 mg 1X ONCE IV Last administered on 02/10/18at 09:10 ; Start 02/10/18 at 08:15; Stop 02/10/18 at 08:16; Status DC Active Scripts Active Reported Spiriva (Tiotropium [place]) 18 Mcg Cap.w.dev 2 Inh IH DAILY Prednisone 2.5 Mg Tablet 5 Mg PO DAILY Buspirone Hcl 10 Mg Tablet 10 Mg PO HS Lisinopril-Hctz 20-25 Mg Tab (Lisinopril/Hydrochlorothiazide) 1 Each Tablet 1 Tab PO DAILY Lasix (Furosemide) 40 Mg Tablet 40 Mg PO DAILY Buspirone Hcl 5 Mg Tablet 5 Mg PO DAILYBFRLUN Carisoprodol 350 Mg Tablet 350 Mg PO TID PRN Clopidogrel (Clopidogrel Bisulfate) 75 Mg Tablet 75 Mg PO DAILY Propafenone Hcl 150 Mg Tablet 75 Mg PO DAILY PRN leg swelling Amlodipine Besylate 5 Mg Tablet 5 Mg PO DAILY Clonidine Hcl 0.2 Mg Tablet 0.2 Mg PO TID Synthroid (Levothyroxine Sodium) 50 Mcg Tablet 1 Tab PO DAILY06 Lisinopril-Hctz 20-12.5 Mg Tab (Lisinopril/Hydrochlorothiazide) 1 Each Tablet 1 Tab PO HS Allopurinol 100 Mg Tablet 1 Tab PO DAILY Atorvastatin Calcium 10 Mg Tablet 10 Mg PO HS Allopurinol 300 Mg Tablet 1 Tab PO HS Clonazepam 0.5 Mg Tablet 0.75 Mg PO DAILY Celexa (Citalopram Hydrobromide) 20 Mg Tablet 20 Mg PO DAILY PRN Amitriptyline Hcl 25 Mg Tablet 25 Mg PO HS Alprazolam 0.25 Mg Tablet 0.25 Mg PO QID PRN Vitals/I & O Vital Sign - Last 24 Hours 02/09/18 02/09/18 02/09/18 02/09/18 10:27 10:30 11:07 11:09 Pulse 94 72 68 92 Resp 18 16 B/P (MAP) 133/73 (93) 133/73 (93) 114/70 114/70 (85) Pulse Ox 92 97 97 O2 Delivery Room Air Nasal Cannula Nasal Cannula O2 Flow Rate 2.0 2.0 2.0 02/09/18 02/09/18 02/09/18 02/09/18 11:30 12:00 12:48 13:00 Temp 97.4 97.4 Pulse 64 64 79 B/P (MAP) 109/67 (81) 113/65 (81) 134/79 (97) Pulse Ox 96 94 90 O2 Delivery Nasal Cannula Nasal Cannula Room Air Nasal Cannula O2 Flow Rate 2.0 2.0 2.5 02/09/18 02/09/18 02/09/18 02/09/18 19:20 20:00 20:24 20:54 Temp 97.8 97.8 Pulse 62 62 Resp 20 B/P (MAP) 130/74 (92) 130/74 Pulse Ox 95 97 O2 Delivery Nasal Cannula Nasal Cannula Nasal Cannula O2 Flow Rate 3.0 2.0 2.0 02/09/18 02/10/18 02/10/18 02/10/18 22:45 03:05 07:00 07:35 Temp 97.6 98.0 97.9 97.6 98.0 97.9 Pulse 66 70 64 Resp 20 20 18 B/P (MAP) 118/69 (85) 110/70 (83) 128/71 (90) Pulse Ox 96 95 95 94 O2 Delivery Nasal Cannula Nasal Cannula Nasal Cannula Nasal Cannula O2 Flow Rate 3.0 3.0 2.0 2.0 Intake and Output 02/09/18 02/09/18 02/10/18 15:00 23:00 07:00 Intake Total 0 ml 300 ml Balance 0 ml 300 ml PATRICIA SPARKS MD Feb 10, 2018 09:41
[2018-02-10 10:43] VITALS: BP 125/65
--- NOTE | 2018-02-10 11:56 | RAD ---
MR#: [id number] Date of Study: 02/10/2018 Ordering Physician: PATRICIA SPARKS, Referring Physician: OONFRE ANDRADE Tech: ARIANE Irizarry APPROVED REPORT Test Type: Pharmacological Stress Nurse/Tech: Elizabeth Dominguez R.N. Test Indications: chest pain Cardiac History: Family history, Hypertension, [place], CABG former smoker Medications: See Electronic Medical Record Medical History: See Electronic Medical Record Resting ECG: NSR with freq. PVC's Resting Heart Rate: 70 bpm Resting Blood Pressure: 135/75mmHg Pretest Chest Pain: No chest pain Nurse/Tech Notes S1S2, lungs sound clear. O2 at 3l/nc Consent: The procedure was explained to the patient in lay terms. Informed consent was witnessed. Tan eout was entered into [employer]. History and Stress Test performed by Elizabeth Dominguez R.N. Pharm. Details Pharmacologic stress testing was performed using 0.4mg per 5ml of regadenoson given intravenously ove r 7-10 seconds. Stress Symptoms Dyspnea POST EXERCISE Reason for Termination: Infusion complete Target HR: 126 Max HR: 106 bpm Max Blood Pressure: 132/57mmHg Blood Pressure response to exercise: Normal blood pressure response during stress. Chest Pain: No. Arrhythmia: Yes. Frequent PVC's ST Change: No. INTERPRETATION Stress EKG Conclusion: No acute ischemic findings. Imaging Protocol IMAGE PROTOCOL: Rest Tc-99m/stress Tc-99m 1 day Rest: Stress: Viability: Radiopharm.Tc99m CiabdyavmAp32c Sestamibi [id number] 35mCi Duration 17min. 13min. Img Date 02/10/2018 02/10/2018 Inj-Img [id number]. 60min. Rest Admin Site:IV - Right AntecubitalAdministrator:RT Татьяан (R)(N) Stress Admin Site: IV - Right AntecubitalAdministrator: ARIANE Irizarry STRESS DATA End Diast. Vol.139.0mlAv. Heart Rate70.0bpm LVEDV index BSA66.0mlCardiac Output0.0L/min End Syst. Vol.87.0mlCO Index BSA0.0L/min LVESV index BSA41.0mlMyocardial Qvjg280.0g Eject. Fwitljss93.0% Stress Scores Regional WT2.00Summed WT34.00 Regional WM0.00Summed WM28.00 LV Perfusion There is a moderate to large sized, FIXED mid to distal anterior and anteroseptal infarct suggestive of prior infarction without significant viability in the distal segment. Wall Motion Severe global hypokinesis with an EF of 37%. LV Perf. Quant 17 Seg. SSS18.00 17 Seg. SRS14.00 17 Seg. SDS4.00 Stress Defect Extent (% LAD)50.60Rest Defect Extent (% LAD)49.40Rev. Defect Extent (% LAD)13.10 Stress Defect Extent (% LCX) 48.80Rest Defect Extent (% LCX)33.80Rev. Defect Extent (% LCX)10.00 Stress Defect Extent (% RCA)0.00Rest Defect Extent (% RCA)0.00Rev. Defect Extent (% RCA)0.00 Stress Defect Extent (% ELENITA)33.50Rest Defect Extent (% ELENITA)31.10Rev. Defect Extent (% ELENITA)7.80 Other Information Quality:Good Risk Assessment: Moderate-High Risk Conclusion 1. No evidence of stress induced EKG changes. Frequent PVC's noted. 2. Fixed mid to distal anterior/septal perfusion defect consistent with infarct, no significant ische zhanna. 3. Severe LV dysfunction. EF 37% 4. Moderate to high risk for future CV events. Signed by : Robel Cunningham, Electronically Approved : 02/10/2018 11:55:22
[2018-02-10] MEDS: busPIRone 5 MG TABLET. PO SCH (12:06)
--- NOTE | 2018-02-10 13:40 | PDOC ---
PULMONARY PROGRESS NOTES Subjective has mild CP Vitals Vital Signs Date Time Temp Pulse Resp B/P (MAP) Pulse Ox O2 Delivery O2 Flow Rate FiO2 02/10/18 11:13 96 Nasal Cannula 2.0 02/10/18 10:43 97.7 78 18 125/65 (85) 97.7 General: Alert, Oriented X4, No acute distress Lungs: Other (decrease bases) Cardiovascular: S1 Abdomen: Soft Neuro Exam: Alert Extremities: No Edema Skin: Warm Labs Laboratory Tests Test 02/09/18 10:35 02/09/18 14:40 02/09/18 17:35 White Blood Count 7.3 x10^3/uL (4.0-11.0) Red Blood Count 4.38 x10^6/uL (4.30-5.70) Hemoglobin 15.0 g/dL (13.0-17.5) Hematocrit 43.3 % (39.0-53.0) Mean Corpuscular Volume 99 fL (79-100) Mean Corpuscular Hemoglobin 34 pg (25-35) Mean Corpuscular Hemoglobin Concent 35 g/dL (31-37) Red Cell Distribution Width 15.0 % (11.5-14.5) Platelet Count 118 x10^3/uL (140-400) Neutrophils (%) (Auto) 72 % (31-73) Lymphocytes (%) (Auto) 13 % (24-48) Monocytes (%) (Auto) 9 % (0-9) Eosinophils (%) (Auto) 6 % (0-3) Basophils (%) (Auto) 0 % (0-3) Neutrophils # (Auto) 5.3 x10^3uL (1.8-7.7) Lymphocytes # (Auto) 0.9 x10^3/uL (1.0-4.8) Monocytes # (Auto) 0.7 x10^3/uL (0.0-1.1) Eosinophils # (Auto) 0.4 x10^3/uL (0.0-0.7) Basophils # (Auto) 0.0 x10^3/uL (0.0-0.2) Platelet Estimate Decreased (ADEQUATE) Large Platelets Few Poikilocytosis Slight Anisocytosis Slight Tear Drop Cells Occ Sodium Level 138 mmol/L (136-145) Potassium Level 3.4 mmol/L (3.5-5.1) Chloride Level 100 mmol/L (98-107) Carbon Dioxide Level 28 mmol/L (21-32) Anion Gap 10 (6-14) Blood Urea Nitrogen 18 mg/dL (8-26) Creatinine 1.2 mg/dL (0.7-1.3) Estimated GFR (Cockcroft-Gault) 59.7 BUN/Creatinine Ratio 15 (6-20) Glucose Level 165 mg/dL (70-99) Calcium Level 9.1 mg/dL (8.5-10.1) Total Bilirubin 0.5 mg/dL (0.2-1.0) Aspartate Amino Transf (AST/SGOT) 16 U/L (15-37) Alanine Aminotransferase (ALT/SGPT) 34 U/L (16-63) Alkaline Phosphatase 118 U/L (46-116) Creatine Kinase 70 U/L (39-308) Creatine Kinase MB (Mass) 1.4 ng/mL (0.0-3.6) Creatine Kinase MB Relative Index % (0-4) Troponin I Quantitative 0.017 ng/mL (0.000-0.055) 0.022 ng/mL (0.000-0.055) 0.024 ng/mL (0.000-0.055) BS-Lhn-J-Type Natriuretic Peptide 387 pg/mL (0-124) Total Protein 6.8 g/dL (6.4-8.2) Albumin 3.8 g/dL (3.4-5.0) Albumin/Globulin Ratio 1.3 (1.0-1.7) Laboratory Tests Test 02/09/18 14:40 02/09/18 17:35 Troponin I Quantitative 0.022 ng/mL (0.000-0.055) 0.024 ng/mL (0.000-0.055) Medications Active Scripts Medications Dose Route/Sig Max Daily Dose Days Date Category Dose Instructions Spiriva (Tiotropium [place]) 18 Mcg Cap.w.dev 2 Inh IH DAILY 02/09/18 Reported Prednisone 2.5 Mg Tablet 5 Mg PO DAILY 02/09/18 Reported Buspirone Hcl 10 Mg Tablet 10 Mg PO HS 02/09/18 Reported Lisinopril-Hctz 20-25 Mg Tab (Lisinopril/Hydrochlorothiazide) 1 Each Tablet 1 Tab PO DAILY 05/14/17 Reported Lasix (Furosemide) 40 Mg Tablet 40 Mg PO DAILY 05/14/16 Reported Buspirone Hcl 5 Mg Tablet 5 Mg PO DAILYBFRLUN 05/14/16 Reported Carisoprodol 350 Mg Tablet 350 Mg PO TID PRN 05/14/16 Reported Clopidogrel (Clopidogrel Bisulfate) 75 Mg Tablet 75 Mg PO DAILY 05/14/16 Reported Propafenone Hcl 150 Mg Tablet 75 Mg PO DAILY PRN 05/14/16 Reported leg swelling Amlodipine Besylate 5 Mg Tablet 5 Mg PO DAILY 05/14/16 Reported Clonidine Hcl 0.2 Mg Tablet 0.2 Mg PO TID 05/14/16 Reported Synthroid (Levothyroxine Sodium) 50 Mcg Tablet 1 Tab PO DAILY06 05/14/16 Reported Lisinopril-Hctz 20-12.5 Mg Tab (Lisinopril/Hydrochlorothiazide) 1 Each Tablet 1 Tab PO HS 05/14/16 Reported Allopurinol 100 Mg Tablet 1 Tab PO DAILY 08/15/15 Reported Atorvastatin Calcium 10 Mg Tablet 10 Mg PO HS 07/25/15 Reported Allopurinol 300 Mg Tablet 1 Tab PO HS 05/11/15 Reported Clonazepam 0.5 Mg Tablet 0.75 Mg PO DAILY 06/21/13 Reported Celexa (Citalopram Hydrobromide) 20 Mg Tablet 20 Mg PO DAILY PRN 06/21/13 Reported Amitriptyline Hcl 25 Mg Tablet 25 Mg PO HS 06/21/13 Reported Alprazolam 0.25 Mg Tablet 0.25 Mg PO QID PRN 06/21/13 Reported Impression . 1. 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 The recent CT chest shows unchanged chronic interstitial infiltrates compared to a year ago while he is maintained on 5 mg of prednisone. He has been recently prescribed oxygen due to increased demands. 2. Chest pain with radiation to the shoulders and left chest wall along with numbness of the hands. Suspect unstable angina and may benefit from a cardiac catheterization. 3. Obstructive sleep apnea with excellent compliance with CPAP. 4. Chronic cough, which has been accentuated since been placed on lisinopril and especially when the dose has been recently increased. Consider other antihypertensive medications. Plan . 1. Continue with present oxygen as recently prescribed. 2. Cardiology recommendations. Stress test is reviewed. EF 37% Fixed defects. I would also consider doing cardiac catheterization to make sure there is no significant coronary artery disease. d/w Dr Guardado. await his rec 3. If the cardiac workup is negative, then we will do CT angio. clinically likely VTE 4. DC SHABNAM inhibitor, lisinopril to a different antihypertensive medication. 5. Continue prednisone 5 mg at home dose. 6. Continue CPAP at bedtime. 7. Discussed with RN and discussed with the patient's . We will follow along with you. LINDY TORRES MD Feb 10, 2018 13:40
[2018-02-10 15:21] VITALS: BP 140/89
[2018-02-10] MEDS ORDERED: POLYETHYLENE GLYCOL 3350 17 GM PACKET. PO ONE (18:30)
[2018-02-10 19:00] VITALS: BP 133/82
[2018-02-10] MEDS: ATORVASTATIN CALCIUM 10 MG TABLET. PO SCH (19:52)
[2018-02-10] MEDS: busPIRone 10 MG TABLET. PO SCH (19:52)
[2018-02-10] MEDS: AMITRIPTYLINE HCL 25 MG TABLET. PO SCH (19:52)
[2018-02-10] MEDS: ALLOPURINOL 300 MG TABLET. PO SCH (19:52)
[2018-02-10] MEDS: ALPRAZolam 0.25 MG TABLET PO PRN ×2 (19:53→22:55)
[2018-02-10] MEDS: PROPAFENONE 150 MG TABLET. PO SCH (20:01)
[2018-02-10 23:00] VITALS: BP 142/82
[2018-02-11 03:00] VITALS: BP 152/85
[2018-02-11] MEDS: LEVOTHYROXINE 50 MCG TABLET PO SCH (05:55)
[2018-02-11 07:25] VITALS: BP 171/79
[2018-02-11] MEDS: clonazePAM 0.5 MG TABLET PO SCH (07:47)
[2018-02-11] MEDS: amLODIPine BESYLATE 5 MG TABLET PO SCH (07:48)
[2018-02-11] MEDS: PROPAFENONE 150 MG TABLET. PO SCH (07:48)
[2018-02-11] MEDS: cloNIDine HCL 0.2 MG TABLET PO SCH ×2 (07:48→14:40)
[2018-02-11] MEDS: CLOPIDOGREL BISULFATE 75 MG TABLET PO SCH (07:49)
[2018-02-11] MEDS: predniSONE 5 MG TABLET PO SCH (07:49)
--- NOTE | 2018-02-11 08:02 | PDOC ---
SUBJECTIVE Subjective Denies chest pain, shortness of breath. Still having some yellow productive sputum. OBJECTIVE Objective Nuclear Med Stress Test Conclusion 1. No evidence of stress induced EKG changes. Frequent PVC's noted. 2. Fixed mid to distal anterior/septal perfusion defect consistent with infarct , no significant ischemia. 3. Severe LV dysfunction. EF 37% 4. Moderate to high risk for future CV events. Vital Signs Vital Signs Date Time Temp Pulse Resp B/P (MAP) Pulse Ox O2 Delivery O2 Flow Rate FiO2 02/11/18 07:48 105 02/11/18 07:48 80 02/11/18 07:48 80 02/11/18 07:25 98.3 76 18 171/79 (109) 93 Nasal Cannula 2.0 98.3 02/11/18 03:00 98.1 77 18 152/85 (107) 96 Nasal Cannula 2.0 98.1 02/10/18 23:00 97.0 70 18 142/82 (102) 94 Nasal Cannula 2.0 97.0 02/10/18 20:01 84 133/82 02/10/18 20:00 Nasal Cannula 2.0 02/10/18 19:53 84 133/82 02/10/18 19:38 94 Nasal Cannula 2.0 02/10/18 19:00 98.3 84 20 133/82 (99) 92 Room Air 98.3 02/10/18 15:48 96 Nasal Cannula 2.0 02/10/18 15:21 97.8 82 18 140/89 (106) 92 Nasal Cannula 2.0 97.8 02/10/18 14:44 74 127/88 02/10/18 14:33 87 127/88 02/10/18 11:13 96 Nasal Cannula 2.0 02/10/18 10:43 97.7 78 18 125/65 (85) 100 Nasal Cannula 2.0 97.7 02/10/18 09:31 72 153/78 02/10/18 09:30 76 153/78 I & O Intake and Output 02/11/18 07:00 Intake Total 680 ml Balance 680 ml Intake Oral 680 ml # Voids 8 # Bowel Movements 3 PHYSICAL EXAM Physical Exam Alert, oriented RRR Essentially clear to auscultation bilaterally, nonlabored respirations Normal pulses Calm, cooperative ASSESSMENT/PLAN Assessment/Plan Chest pain concerning for unstable angina Coronary artery disease status post CABG Interstitial lung disease Hypertension Hyperlipidemia History of prostate cancer RYANNE on CPAP Hypothyroidism Dr. Guardado and Dr. Abbott following. Stress testing shows EF 37% and fixed anterior/septal defects. Plan for L/R heart cath today Reportedly has likely SHABNAM induced cough, lisinopril held. No improvement in cough yet. Monitor BP and change to losartan if needed. MARU FORD MD Feb 11, 2018 08:02
[2018-02-11] MEDS: IPRATRPIUM/ALBUTEROL 0.5/2.5MG 3 ML NEBU. NEB SCH ×3 (08:18→16:31)
[2018-02-11] MEDS ORDERED: BENZONATATE 100 MG CAPSULE. PO PRN (08:45)
[2018-02-11] MEDS: FUROSEMIDE 40 MG TABLET. PO SCH (09:00)
[2018-02-11] MEDS ORDERED: CONTRAST GIVEN. MC PRN (09:30)
[2018-02-11] MEDS ORDERED: LIDOCAINE 1% PF 30 ML VIAL. INJ ONE (09:30)
[2018-02-11] MEDS ORDERED: fentaNYL PF VIAL 100 MCG/2 ML VIAL IV ONE (09:30)
[2018-02-11] MEDS ORDERED: IODIXANOL 320 MG/ML 100 ML VIAL. IART ONE (09:30)
[2018-02-11] MEDS ORDERED: MIDAZOLAM HCL/PF 2 MG/2 ML VIAL. IV ONE (09:30)
[2018-02-11] MEDS ORDERED: IODIXANOL 320 MG/ML 100 ML VIAL. ONE ×2 (09:50→10:29)
[2018-02-11] MEDS ORDERED: HEPARIN for ARTERIAL LINE 1,500 ML ONE (09:50)
[2018-02-11] MEDS ORDERED: LIDOCAINE 1% PF 30 ML VIAL. ONE (09:51)
[2018-02-11 10:58] VITALS: BP 147/79
[2018-02-11 11:05] VITALS: BP 121/77
[2018-02-11] MEDS: busPIRone 5 MG TABLET. PO SCH (11:30)
--- NOTE | 2018-02-11 12:29 | PDOC ---
PULMONARY PROGRESS NOTES Subjective feels better s/p cath Vitals Vital Signs Date Time Temp Pulse Resp B/P (MAP) Pulse Ox O2 Delivery O2 Flow Rate FiO2 02/11/18 12:15 94 Nasal Cannula 2.0 02/11/18 11:05 97.4 69 18 121/77 (92) 97.4 General: Alert, Oriented X4, No acute distress Lungs: Other (decrease bases) Cardiovascular: S1 Abdomen: Soft Neuro Exam: Alert Extremities: No Edema Skin: Warm Labs Laboratory Tests Test 02/09/18 14:40 02/09/18 17:35 Troponin I Quantitative 0.022 ng/mL (0.000-0.055) 0.024 ng/mL (0.000-0.055) Medications Active Scripts Medications Dose Route/Sig Max Daily Dose Days Date Category Dose Instructions Spiriva (Tiotropium [place]) 18 Mcg Cap.w.dev 2 Inh IH DAILY 02/09/18 Reported Prednisone 2.5 Mg Tablet 5 Mg PO DAILY 02/09/18 Reported Buspirone Hcl 10 Mg Tablet 10 Mg PO HS 02/09/18 Reported Lisinopril-Hctz 20-25 Mg Tab (Lisinopril/Hydrochlorothiazide) 1 Each Tablet 1 Tab PO DAILY 05/14/17 Reported Lasix (Furosemide) 40 Mg Tablet 40 Mg PO DAILY 05/14/16 Reported Buspirone Hcl 5 Mg Tablet 5 Mg PO DAILYBFRLUN 05/14/16 Reported Carisoprodol 350 Mg Tablet 350 Mg PO TID PRN 05/14/16 Reported Clopidogrel (Clopidogrel Bisulfate) 75 Mg Tablet 75 Mg PO DAILY 05/14/16 Reported Propafenone Hcl 150 Mg Tablet 75 Mg PO DAILY PRN 05/14/16 Reported leg swelling Amlodipine Besylate 5 Mg Tablet 5 Mg PO DAILY 05/14/16 Reported Clonidine Hcl 0.2 Mg Tablet 0.2 Mg PO TID 05/14/16 Reported Synthroid (Levothyroxine Sodium) 50 Mcg Tablet 1 Tab PO DAILY06 05/14/16 Reported Lisinopril-Hctz 20-12.5 Mg Tab (Lisinopril/Hydrochlorothiazide) 1 Each Tablet 1 Tab PO HS 05/14/16 Reported Allopurinol 100 Mg Tablet 1 Tab PO DAILY 08/15/15 Reported Atorvastatin Calcium 10 Mg Tablet 10 Mg PO HS 07/25/15 Reported Allopurinol 300 Mg Tablet 1 Tab PO HS 05/11/15 Reported Clonazepam 0.5 Mg Tablet 0.75 Mg PO DAILY 06/21/13 Reported Celexa (Citalopram Hydrobromide) 20 Mg Tablet 20 Mg PO DAILY PRN 06/21/13 Reported Amitriptyline Hcl 25 Mg Tablet 25 Mg PO HS 06/21/13 Reported Alprazolam 0.25 Mg Tablet 0.25 Mg PO QID PRN 06/21/13 Reported Impression . 1. 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 The recent CT chest shows unchanged chronic interstitial infiltrates compared to a year ago while he is maintained on 5 mg of prednisone. He has been recently prescribed oxygen due to increased demands. 2. Chest pain with radiation to the shoulders and left chest wall along with numbness of the hands. stress test with EF 37%, fixed defects. s/p right/ Left cath, awaiting report 3. Obstructive sleep apnea with excellent compliance with CPAP. 4. Chronic cough, which has been accentuated since been placed on lisinopril and especially when the dose has been recently increased. Consider other antihypertensive medications. Plan . 1. Continue with present oxygen as recently prescribed. 2. Cardiology recommendations. Stress test is reviewed. EF 37% Fixed defects. await cardiac catheterization report 3. No need to do CT angio. clinically unlikely VTE 4. changed SHABNAM inhibitor, lisinopril to a different antihypertensive medication. 5. Continue prednisone 5 mg at home dose. 6. Continue CPAP at bedtime. 7. Discussed with RN and discussed with the patient's . ok with home/ f/u with me in Mar We will follow along with you. LINDY TORRES MD Feb 11, 2018 12:29
[2018-02-11 15:00] VITALS: BP 126/73
[2018-02-11] MEDS ORDERED: BENZ100C PO (15:53)
--- NOTE | 2018-02-11 18:37 | CARD ---
MR#: [id number] Date of Study: 02/11/2018 Ordering Physician: RICARDO GUARDADO, Referring Physician: MAYE WHITT Tech: Latonya Toledo RTR APPROVED REPORT Technologist: Latonya Toledo RTR Nurse: Sheri Smallwood R.N. Procedure(s) performed: Moderate Sedation time: 55 minutes Right and left heart catheterization with graft visualization and ventriculogram HISTORY The patient is a 72 year-old with a history of : previous [place], diabetes mellitus with treatment, coron robert artery disease, chronic lung disease, tobacco history() , hypertension, previous CABG (The CABG d ate was ), This patient with progressive COPD that is requiring of 2 at home now continues to have pr oblems with dyspnea and also having problems with exertional chest pains. To be able to evaluate the patient's PA pressures as well as the coronary anatomy it was decided to do a right and left heart ca theterization. This was discussed with the patient and the family and they're in agreement with this. CASE TECHNIQUE The patient was brought electively into the cardiac catheterization lab. A timeout was performed conf irming the patient's name, date of , procedure, and site of procedure. All necessary parties wer e wearing the appropriate personal protective equipment and radiation monitoring devices. After expla ining the risks and benefits of the procedure, informed consent was obtained.(See nursing notes for m edications administered). The right groin was sterilely prepped and draped. The right femoral groin w as infiltrated with 2% Lidocaine subcutaneous anesthesia. During this case, Fluoroscopy and low osmol ar contrast were used for imaging. A sheath was inserted into the right femoral artery and vein witho ut difficulty. Coronary angiography was performed using coronary diagnostic catheters. The left coron robert system was accessed and visualized with a Diagnostic catheter. The right coronary system was acce ssed and visualized with a Diagnostic catheter. The left ventricle was accessed and visualized with a Diagnostic catheter. The left internal mammary artery was accessed and visualized with a Diagnostic catheter. The saphenous vein graft was accessed and visualized with a Diagnostic catheter. The saphen ous vein graft was accessed and visualized with a Diagnostic catheter. Left ventricular/Aortic Valve gradient assessed on pullback. Left ventriculogram was performed in BLOOD projection. An aortogram of t he ascending aorta was performed. A Right Heart Catheterization was performed with a 7.5 Fr. [place] catheter and pressure were recorded. Pre-demployment femoral angiogram was performed . Closure sven ce was deployed with a Angioseal without any complications. The patient tolerated the procedure well and there were no complications associated with the procedure. Coronary Angiography The patient's coronary anatomy is right dominant. The left main coronary artery is a medium size vessel with stenosis. There is a 50% stenosis in the d istal segment. The left main bifurcates to the left anterior descending and circumflex. The left anterior descending artery is a medium size vessel with stenosis. There is a 100% stenosis i n the mid segment. The first diagonal branch is a medium size vessel with intimal irregularities and without significant stenosis. The second diagonal branch is a small size vessel with mild-moderate di ffused disease. The third diagonal branch is a small size vessel with mild-moderate diffused disease. The circumflex artery is a medium size vessel with stenosis. There is a 60% stenosis in the mid segme nt. The first obtuse marginal branch is a medium size vessel with stenosis. There is a 100% stenosis in the ostial segment. The second obtuse marginal branch is a small size vessel with stenosis. There is a 100% stenosis in the ostial segment. The right coronary artery is a large size vessel with moderate diffused disease. There is a 65% steno sis in the mid segment. with multiple intimal irregularities throughout the vessel The right posterio r descending artery is a small size vessel in caliber but is a very long vessel. There is a 55% steno sis in the proximal segment. distal to the anastomosis of the saphenous vein graft The left internal mammary artery to the mid left anterior descending artery segment is patent . The s aphenous vein graft to the distal right coronary artery is patent . The saphenous vein graft to the l ateral first obtuse marginal branch segment is patent . Left Ventriculography The left ventricle is dilated in size with decreased contractility. The left ventricular ejection fra ction is estimated to be 38%. The left ventricular end diastolic pressure is 19 mmHg. There was no gr adient across the aortic valve upon pullback. The pressure in the aorta was 140/72 mmHg The pressure in the LV was 140/ 8 mmHg Right Heart Cath Findings The Right Atrial Pressure is 8 mmHg. The Right Ventricular Pressure is 44/8 mmHg. The Pulmonary Arter y Pressure is 42/19 mmHg. The Pulmonary Catheter Wedge Pressure is 11 mmHg. Aorta The ascending aorta is mildly dilated and there is no evidence of a dissection. The graft to the RCA and the graft to the obtuse marginal were visualized with the dye injection Conclusion This patient has severe [place] vessel coronary artery disease as well as small vessel distal coronary artery disease. I would recommend medical treatment for this. The patient has an ischemic cardiomyopathy with a decreased left ventricular ejection fraction of abo ut 38%. The left ventricular end-diastolic pressure would suggest significant diastolic dysfunction. The patient has pulmonary hypertension as well. I would recommend medical treatment including O2 around the clock. Recommendations Medical Therapy Signed by : Ricardo Guardado MD Electronically Approved : 02/11/2018 18:35:49
--- NOTE | 2018-02-13 11:23 | PDOC3 ---
Discharge Summary Date of Admission: Feb 09, 2018 Date of Discharge: Feb 11, 2018 Admitting Diagnosis comment: Chest pain concerning for unstable angina Coronary artery disease status post CABG Interstitial lung disease Hypertension Hyperlipidemia History of prostate cancer RYANNE on CPAP Hypothyroidism FINAL DIAGNOSIS As above Severe coronary artery disease Mild systolic heart failure with EF 38% Pulmonary HTN Brief Hospital Course Mr. Tillman is a 72 old male with multiple comorbidities including severe CAD s/ p CABG and interstitial lung disease who presented for evaluation of chest pain. An initial nuclear stress test was abnormal, showing a fixed anteroseptal defect and EF of 38%. A right/left cath was performed which showed severe CAD. He will be optimized medically and no further intervention is necessary at this time. No changes to medications were made. He was discharged in stable condition and will follow up with PCP, Cards and Pulm as scheduled. CONDITION AT DISCHARGE: Stable Discharge Medications Active Reported Tessalon Perle (Benzonatate) 100 Mg Capsule 100 Mg PO TID PRN Spiriva (Tiotropium [place]) 18 Mcg Cap.w.dev 2 Inh IH DAILY Prednisone 2.5 Mg Tablet 5 Mg PO DAILY Buspirone Hcl 10 Mg Tablet 10 Mg PO HS Lasix (Furosemide) 40 Mg Tablet 40 Mg PO DAILY Buspirone Hcl 5 Mg Tablet 5 Mg PO DAILYBFRLUN Carisoprodol 350 Mg Tablet 350 Mg PO TID PRN Clopidogrel (Clopidogrel Bisulfate) 75 Mg Tablet 75 Mg PO DAILY Propafenone Hcl 150 Mg Tablet 75 Mg PO DAILY PRN leg swelling Amlodipine Besylate 5 Mg Tablet 5 Mg PO DAILY Clonidine Hcl 0.2 Mg Tablet 0.2 Mg PO TID Synthroid (Levothyroxine Sodium) 50 Mcg Tablet 1 Tab PO DAILY06 Allopurinol 100 Mg Tablet 1 Tab PO DAILY Atorvastatin Calcium 10 Mg Tablet 10 Mg PO HS Allopurinol 300 Mg Tablet 1 Tab PO HS Clonazepam 0.5 Mg Tablet 0.75 Mg PO DAILY Celexa (Citalopram Hydrobromide) 20 Mg Tablet 20 Mg PO DAILY PRN Amitriptyline Hcl 25 Mg Tablet 25 Mg PO HS Alprazolam 0.25 Mg Tablet 0.25 Mg PO QID PRN Allergies Allergies Coded Allergies Type Severity Reaction Last Updated Verified tamsulosin Adverse Reaction Intermediate Nausea and Vomiting 11/17/15 Yes Disposition/Orders: D/C to Home MARU FORD MD Feb 13, 2018 11:23
== END 2018-02-11 17:15 | disposition home or self-care (01) ==
LOC: ER 10:19 → 2 NORTH 11:15
PROVIDERS: ADMIT Family Medicine; ATTEND Family Medicine
DX: I25.10 Atherosclerotic heart disease of native coronary artery without angina pectoris (principal); J84.9 Interstitial pulmonary disease, unspecified; I11.0 Hypertensive heart disease with heart failure; I50.9 Heart failure, unspecified; E78.5 Hyperlipidemia, unspecified; G47.33 Obstructive sleep apnea (adult) (pediatric); J44.9 Chronic obstructive pulmonary disease, unspecified; J96.01 Acute respiratory failure with hypoxia; E03.9 Hypothyroidism, unspecified; Z87.891 Personal history of nicotine dependence; Z95.1 Presence of aortocoronary bypass graft; Z96.611 Presence of right artificial shoulder joint; Z85.46 Personal history of malignant neoplasm of prostate; Z87.442 Personal history of urinary calculi; Z79.52 Long term (current) use of systemic steroids
CPT/HCPCS: 36415; 71045; 78452; 80053; 82553; 83880; 84484; 85025; 93005; 93017; 93461; 93567; 94640; 94760; 96374; 96375; 99284; A9500; C1769; C1771; C1773; C1892; G0269; G0378; J1644; J2250; J2785; J3010; J7512; J7620; 96376; 99152; 99153; G0379

== ENCOUNTER 2018-03-04 10:00 | Day surgery (SDC) | payer OTHER ==
[~2018-03-04 10:00] MED LIST changes: +ALBU2.5V8 IH; +BENZ100C PO; +CIPROFLOXACIN 0.3% OPHTH SOLUTION 5ML BOTTLE. OS ONE; +HYDROmorphone 2 MG/ML VIAL IV PRN; +IV RINGERS,LACTATED 1000ML 1,000 ML IV SCH; +LIDOCAINE 1% PF 2 ML VIAL. ID PRN; +LIDOCAINE 2% JELLY 6ML IN APPLICATOR. MM SCH; +MORPHINE SULFATE 2 MG/ML VIAL. IV PRN; +ONDANSETRON PF 4 MG/2 ML VIAL. IV PRN; +PRED2.5T PO; +PROAIR RESPICL90 MCG IH; +PROCHLORPERAZINE 10 MG/2 ML VIAL. IV PRN; +PROPARACAINE 0.5% OPHTH SOLUTION 15ML BOTTLE. OS ONE; -PROVENTIL HFA6.7 GM IH; +TETRACAINE 0.5% OPHTH SOLUTION 4ML BOTTLE. OS ONE; +TIOT18CA IH; +fentaNYL PF VIAL 100 MCG/2 ML VIAL IV PRN
[2018-03-04] MEDS ORDERED: LIDOCAINE 2% JELLY 6ML IN APPLICATOR. ONE (11:03)
[2018-03-04] MEDS ORDERED: CHONDROITIN-SOD-HYALURONATE 0.5 ML DISP.SYRIN. ONE (11:03)
[2018-03-04] MEDS ORDERED: NEO/POLYMYX/DEXAMETH OPHTH OINTMENT 3.5GM TUBE. ONE (11:03)
[2018-03-04] MEDS ORDERED: BALANCED SALT IRRIG OPHTH SOLN 15 ML BOTTLE. ONE (11:03)
[2018-03-04] MEDS ORDERED: LIDOCAINE 1% PF 2 ML VIAL. ONE (11:03)
[2018-03-04] MEDS ORDERED: CHONDROIT-SOD-HYALURONATE KIT. ONE (11:03)
[2018-03-04] MEDS: PHENYLEPHRINE 10% OPHTH SOLUTION 5ML BOTTLE. OS SCH ×3 (11:13→11:23)
[2018-03-04] MEDS: CYCLOPENTOLATE 1% OPTH SOLUTION 2ML BOTTLE. OS SCH ×3 (11:13→11:23)
[2018-03-04] MEDS ORDERED: MIDAZOLAM HCL/PF 2 MG/2 ML VIAL. ONE (11:58)
--- NOTE | 2018-03-04 13:03 | OP ---
DATE OF SURGERY: 03/04/2018 PREOPERATIVE DIAGNOSIS: Cataract of the left eye. PROCEDURE: Phacoemulsification with posterior chamber intraocular lens implantation of the left eye. INDICATION: Painless progressive visual loss and visually significant cataract and difficulty reading. SURGEON: Vlad Childers MD ANESTHESIA: Topical with monitored anesthesia care. DESCRIPTION OF PROCEDURE: The left eye was prepped with Betadine in the usual sterile fashion and draped. A paracentesis was performed followed by instillation of a premixed solution of phenylephrine, lidocaine and balanced salt solution preservative-free. Viscoelastic was injected in the anterior chamber and a temporal clear corneal incision was made. A capsulorrhexis was performed followed by hydrodissection. The phacoemulsification handpiece was used to remove the nucleus in a modified stop and chop fashion. The I/A handpiece was used to remove the remainder of the cortex. Viscoelastic was injected in the capsular bag and an Rafiq model [id number] with a power of 20.5 diopters was placed into the capsular bag. Balanced salt solution was used to hydrate the corneal wounds and the viscoelastic evacuated with a I/A handpiece. Once no leak was noted, Maxitrol was placed on the eye and the eye shielded and the patient was sent to the recovery room uneventfully. VLAD CHILDERS MD DR: GIOVANI/velia JOB#: [id number] / [id number]
[2018-03-04 13:04] VITALS: BP 153/86
== END 2018-03-04 13:25 | disposition home or self-care (01) ==
LOC: SURG 10:00
PROVIDERS: ATTEND Ophthalmology
DX: H26.9 Unspecified cataract (principal); H02.834 Dermatochalasis of left upper eyelid; H02.831 Dermatochalasis of right upper eyelid; H43.393 Other vitreous opacities, bilateral; H04.123 Dry eye syndrome of bilateral lacrimal glands; Z83.518 Family history of other specified eye disorder; Z98.61 Coronary angioplasty status; Z85.46 Personal history of malignant neoplasm of prostate; Z98.890 Other specified postprocedural states; Z87.891 Personal history of nicotine dependence; Z79.899 Other long term (current) drug therapy; Z88.8 Allergy status to other drugs, medicaments and biological substances
CPT/HCPCS: 66984; C1780; J0171; J0690; J1580; J2250

== ENCOUNTER 2018-03-11 10:00 | Day surgery (SDC) | payer OTHER ==
[~2018-03-11 10:00] MED LIST changes: +CHONDROIT-SOD-HYALURONATE KIT. ONE; +CHONDROITIN-SOD-HYALURONATE 0.5 ML DISP.SYRIN. ONE; +CIPROFLOXACIN 0.3% OPHTH SOLUTION 5ML BOTTLE. OD ONE; -CIPROFLOXACIN 0.3% OPHTH SOLUTION 5ML BOTTLE. OS ONE; +LIDOCAINE 1% PF 2 ML VIAL. ONE; +NEO/POLYMYX/DEXAMETH OPHTH OINTMENT 3.5GM TUBE. ONE; -ONDANSETRON PF 4 MG/2 ML VIAL. IV PRN; +PROPARACAINE 0.5% OPHTH SOLUTION 15ML BOTTLE. OD ONE; -PROPARACAINE 0.5% OPHTH SOLUTION 15ML BOTTLE. OS ONE; -TETRACAINE 0.5% OPHTH SOLUTION 4ML BOTTLE. OS ONE
[2018-03-11] MEDS: PHENYLEPHRINE 10% OPHTH SOLUTION 5ML BOTTLE. OD SCH ×3 (11:03→11:13)
[2018-03-11] MEDS: CYCLOPENTOLATE 1% OPTH SOLUTION 2ML BOTTLE. OD SCH ×3 (11:03→11:12)
[2018-03-11] MEDS ORDERED: MIDAZOLAM HCL/PF 2 MG/2 ML VIAL. ONE (12:19)
[2018-03-11 13:32] VITALS: BP 164/70
--- NOTE | 2018-03-11 13:52 | OP ---
DATE OF SURGERY: 03/11/2018 PREOPERATIVE DIAGNOSIS: Cataract of the right eye. PROCEDURE: Phacoemulsification with posterior chamber intraocular lens implantation of the right eye. INDICATIONS: Painless progressive vision loss and visually significant cataract and difficulty reading. SURGEON: Vlad Childers MD ANESTHESIA: Topical with monitored anesthesia care. DESCRIPTION OF PROCEDURE: The right eye was prepped with Betadine in usual sterile fashion and draped. A paracentesis was performed followed by instillation of preservative-free mixture of lidocaine and epinephrine with balanced salt solution. Viscoelastic was injected in the anterior chamber and temporal clear corneal incision was made. A capsulorrhexis was performed and hydrodissection followed. The phacoemulsification handpiece was used to remove the nucleus in a modified stop and chop fashion. The I/A handpiece was used to remove the remainder of the cortex. An Rafiq, Model [id number] with a power of 20.5 diopters was placed into the capsular bag and balanced salt solution was used to hydrate the corneal wounds. The viscoelastic was evacuated with the I/A handpiece and Maxitrol was placed on the eye and the eye shield and the patient was sent to the recovery room uneventfully. VLAD CHILDERS MD DR: GIOVANI/nts JOB#: [id number] / [id number]
== END 2018-03-11 13:32 | disposition home or self-care (01) ==
LOC: SURG 10:00
PROVIDERS: ATTEND Ophthalmology
DX: H26.9 Unspecified cataract (principal); H54.61 Unqualified visual loss, right eye, normal vision left eye; F81.0 Specific reading disorder; H02.834 Dermatochalasis of left upper eyelid; H02.831 Dermatochalasis of right upper eyelid; H43.393 Other vitreous opacities, bilateral; H04.123 Dry eye syndrome of bilateral lacrimal glands; J30.9 Allergic rhinitis, unspecified; I49.9 Cardiac arrhythmia, unspecified; I11.0 Hypertensive heart disease with heart failure; I50.9 Heart failure, unspecified; E78.5 Hyperlipidemia, unspecified; E03.9 Hypothyroidism, unspecified; G43.919 Migraine, unspecified, intractable, without status migrainosus; G47.30 Sleep apnea, unspecified; J84.9 Interstitial pulmonary disease, unspecified; Z85.46 Personal history of malignant neoplasm of prostate; Z83.511 Family history of glaucoma; Z95.1 Presence of aortocoronary bypass graft; Z98.890 Other specified postprocedural states; Z87.891 Personal history of nicotine dependence; Z79.899 Other long term (current) drug therapy
CPT/HCPCS: 66984; C1780; J0171; J0690; J1580; J2250

== ENCOUNTER → 2018-04-17 | Outpatient (CLI) | payer MEDICARE ==
[~2018-04-17] MED LIST changes: -CHONDROIT-SOD-HYALURONATE KIT. ONE; -CHONDROITIN-SOD-HYALURONATE 0.5 ML DISP.SYRIN. ONE; -CIPROFLOXACIN 0.3% OPHTH SOLUTION 5ML BOTTLE. OD ONE; -HYDROmorphone 2 MG/ML VIAL IV PRN; -IV RINGERS,LACTATED 1000ML 1,000 ML IV SCH; -LIDOCAINE 1% PF 2 ML VIAL. ID PRN; -LIDOCAINE 1% PF 2 ML VIAL. ONE; -LIDOCAINE 2% JELLY 6ML IN APPLICATOR. MM SCH; -MORPHINE SULFATE 2 MG/ML VIAL. IV PRN; -NEO/POLYMYX/DEXAMETH OPHTH OINTMENT 3.5GM TUBE. ONE; -PROCHLORPERAZINE 10 MG/2 ML VIAL. IV PRN; -PROPARACAINE 0.5% OPHTH SOLUTION 15ML BOTTLE. OD ONE; -fentaNYL PF VIAL 100 MCG/2 ML VIAL IV PRN
--- NOTE | 2018-04-17 10:44 | RAD ---
MR#: [id number] Date of Study: 04/17/2018 Ordering Physician: XIN JOHN, Referring Physician: XIN JOHN Tech: Olga Chowdary, PIA, RVT, RTR APPROVED REPORT Patient Location: OUT-PATIENT Indications CAD; HTN; Multiple previous [place]'s VELOCITY AND DOPPLER WAVEFORM ANALYSIS RIGHT cm/secWaveformSeverity LEFT cm/secWaveform Severity pCFA 181.2pCFA 101.9 Prof Fem Art. 190.9Prof Fem Art. 99.8 Fem Art Prox. 189.4Fem Art Prox. 310.4 Fem Art Mid. 77.7Fem Art Mid. 118.3 Fem Art Dist. 97.5Fem Art Dist. 88.3 Pop Art(AK) 124.8Pop Art(AK) 129.4 EXAM PROCTOR Dist. 86.0PTA Dist. 59.0 Per Art Prox. 80.2Per Art Prox. 44.8 KVNG Prox. 52.6ATA Prox. 38.8 DPA 18DPA 106 Findings Grayscale images of the bilateral lower extremity arterial vessels reveals diffuse athero-'s chronic plaque. Velocities are mildly elevated in the bilateral common femoral arteries likely suggestive of less steven n 50% stenosis. The left superficial femoral artery has velocity separation suggestive greater than 50% stenosis. No significant flow limiting stenosis is identified in the bilateral popliteal vessels. There is three-vessel runoff below the knee with diminished flow in the results pedis vessel with oth erwise three-vessel runoff on the right. There is three-vessel runoff on the left with likely greater than 50% stenosis involving the dorsalis pedis artery. Critical Notification Critical Value: No <Conclusion> 1. Moderate diffuse bilateral lower extremity arterial disease with significant disease noted at the level of the left proximal superficial femoral artery and bilateral distal dorsalis pedis vessels. Signed by : Robel Cunningham, Electronically Approved : 04/17/2018 10:42:03
--- NOTE | 2018-04-17 11:04 | CARD ---
MR#: [id number] Date of Study: 04/17/2018 Ordering Physician: XIN GOODRICH, Referring Physician: XIN GOODRICH Tech: Sneha Cruz ROSAURA APPROVED REPORT EXAM: Two-dimensional and M-mode echocardiogram with Doppler and color Doppler. Other Information Quality : AverageHR: 75bpm Rhythm : Other INDICATION Cardiomyopathy 2D DIMENSIONS RVDd3.2 (2.9-3.5cm)Left Atrium(2D)4.6 (1.6-4.0cm) IVSd1.5 (0.7-1.1cm)Aortic Root(2D)3.7 (2.0-3.7cm) LVDd5.1 (3.9-5.9cm)LVOT Diameter2.1 (1.8-2.4cm) PWd1.1 (0.7-1.1cm)LVDs4.4 (2.5-4.0cm) FS (%) 14.8 %SV38.8 ml LVEF(%)31.2 (>50%) M-Mode DIMENSIONS Left Atrium(MM)5.24 (2.5-4.0cm)Aortic Root4.13 (2.2-3.7cm) Aortic Valve AoV Peak Jenaro.146.9cm/sAoV VTI30.3cm AO Peak GR.8.6mmHgLVOT Peak Jenaro.110.9cm/s AO Mean GR.5mmHgAVA (VTI)2.20cm2 Mitral Valve MV E Pqztxhwa55.6cm/sMV DECEL [id number] MV A Gvqhzhtq04.6cm/sE/A Ratio1.0 MV A [id number] Pulmonary Valve PV Peak Lzxfvgko98.5cm/s Tricuspid Valve TR P. Xpkijlic517tn/sRAP HWMDYJLE0xnNd TR Peak Gr.93kjRrRFEU33dkKu LEFT VENTRICLE The left ventricle is normal size. Proximal septal thickening is noted. The Ejection Fraction is 40-4 5%. Mid to distal anteroseptal wall hypokinesis. RIGHT VENTRICLE The right ventricle is normal size. There is normal right ventricular wall thickness. The right ventr icular systolic function is normal. ATRIA The left atrium is moderately dilated. The right atrium is mildly dilated. The interatrial septum is intact with no evidence for an atrial septal defect or patent foramen ovale as noted on 2-D or Dopple r imaging. AORTIC VALVE The aortic valve is calcified but opens well. The aortic valve is trileaflet. Doppler and Color Flow revealed no significant aortic regurgitation. There is no significant aortic valvular stenosis. MITRAL VALVE The mitral valve is normal in structure and function. There is no evidence of mitral valve prolapse. There is no mitral valve stenosis. Doppler and Color-flow revealed trace to mild mitral regurgitation . TRICUSPID VALVE The tricuspid valve is normal in structure and function. Doppler and Color Flow revealed trace tricus pid regurgitation. There is moderate pulmonary hypertension. The PA pressure was estimated at 43 mmHg . There is no tricuspid valve prolapse or vegetation. There is no tricuspid valve stenosis. PULMONIC VALVE The pulmonary valve is normal in structure and function. Doppler and Color Flow revealed trace pulmon ic valvular regurgitation. There is no pulmonic valvular stenosis. GREAT VESSELS The aortic root is mildly enlarged. The IVC is normal in size and collapses >50% with inspiration. PERICARDIAL EFFUSION There is no evidence of significant pericardial effusion. Critical Notification Critical Value: No <Conclusion> Mid to distal anteroseptal wall hypokinesis. The Ejection Fraction is 40-45%. The left atrium is moderately dilated. Trace to mild mitral regurgitation. Trace tricuspid regurgitation. The PA pressure was estimated at 43 mmHg. There is no evidence of significant pericardial effusion. Signed by : Xin Goodrich, Electronically Approved : 04/17/2018 11:02:06
== END | disposition home or self-care (01) ==
LOC: US 07:39
PROVIDERS: ATTEND Internal Medicine Cardiovascular Disease
DX: I70.293 Other atherosclerosis of native arteries of extremities, bilateral legs (principal); I27.20 Pulmonary hypertension, unspecified; I25.10 Atherosclerotic heart disease of native coronary artery without angina pectoris; I25.5 Ischemic cardiomyopathy; I25.2 Old myocardial infarction; I10 Essential (primary) hypertension
CPT/HCPCS: 93306; 93925

== ENCOUNTER 2018-05-18 06:45 | Observation (INO) | payer MEDICARE ==
[2018-05-18] VITALS (16 sets, daily range): BP systolic 109–146; BP diastolic 65–78
[~2018-05-18] VITALS: Ht 175.3 cm; Wt 92.6 kg
[~2018-05-18 06:45] MED LIST changes: -AMLO10TA6 PO; +AMLO10TA8 PO; +AMLO5TAB10 PO; -AMLO5TAB7 PO
[2018-05-18] MEDS ORDERED: IODIXANOL 320 MG/ML 100 ML VIAL. ONE (07:15)
[2018-05-18] MEDS ORDERED: LIDOCAINE 1% Multi-Dose 20 ML VIAL. ONE ×2 (07:15→09:06)
[2018-05-18 07:43] LABS: HEMATOCRIT 42.6 % (39.0-53.0); HEMOGLOBIN 14.4 g/dL (13.0-17.5); RED BLOOD COUNT 4.29 x10^6/uL (4.30-5.70); RED CELL DISTRIBUTION WIDTH 15.2 % (11.5-14.5); WHITE BLOOD COUNT 8.4 x10^3/uL (4.0-11.0)
[2018-05-18 07:56] LABS: CALCIUM 9.4 mg/dL (8.5-10.1); CREATININE 1.1 mg/dL (0.7-1.3); POTASSIUM 3.5 mmol/L (3.5-5.1)
[2018-05-18] MEDS ORDERED: MIDAZOLAM HCL/PF 2 MG/2 ML VIAL. ONE ×2 (08:24→09:07)
[2018-05-18] MEDS ORDERED: fentaNYL PF VIAL 100 MCG/2 ML VIAL ONE (08:24)
[2018-05-18] MEDS ORDERED: LISI1TAB5 PO (08:25)
[2018-05-18] MEDS ORDERED: HEPARIN for IV BOLUS 10,000 UNIT/10 ML VIAL. ONE ×2 (09:07→09:15)
[2018-05-18] MEDS ORDERED: dilTIAZem IV PUSH 25 MG/5 ML VIAL ONE (09:15)
[2018-05-18] MEDS ORDERED: NITROGLYCERIN 4 MG/20 ML SYRINGE for CATH LAB. ONE ×2 (09:15→09:30)
[2018-05-18] MEDS ORDERED: NITROGLYCERIN 200 MCG/2 ML SYRINGE FOR CATH/VASC LAB. ONE (09:36)
[2018-05-18] MEDS ORDERED: HEPARIN for IV BOLUS 10,000 UNIT/10 ML VIAL. IV ONE (09:45)
[2018-05-18] MEDS ORDERED: LIDOCAINE 1% Multi-Dose 20 ML VIAL. INJ ONE (09:45)
[2018-05-18] MEDS ORDERED: MIDAZOLAM HCL/PF 2 MG/2 ML VIAL. IV ONE (09:45)
[2018-05-18] MEDS ORDERED: fentaNYL PF VIAL 100 MCG/2 ML VIAL IV ONE (09:45)
[2018-05-18] MEDS ORDERED: IODIXANOL 320 MG/ML 100 ML VIAL. IART ONE (09:45)
[2018-05-18] MEDS ORDERED: NITROGLYCERIN 200 MCG/2 ML SYRINGE FOR CATH/VASC LAB. IART ONE (09:45)
[2018-05-18] MEDS ORDERED: CONTRAST GIVEN. MC PRN (10:15)
--- NOTE | 2018-05-18 10:25 | PDOC ---
MODERATE SEDATION ASSESSMENT RISKS/ALTERNATIVES Risks/Alternatives Risks and alternatives of this type of sedation and procedure discussed with: RISK/ALTERNATIVES: Patient H & P ON CHART H & P H & P on chart and reviewed for co-morbid conditions and appropriate labs. H&P ON CHART: Yes STATUS PREG STATUS ASSESSED: N/A MEDS/ALLERGIES REVIEWED Meds/Allergies Reviewed Medications and Allergies including time and route of recently administered narcotics and sedatives. MEDS/ALLERGIES REVIEWED: Yes ASA RATING ASA RATING: III AIRWAY ASSESSMENT Airway Assessment Airway patency, oral function limitations, presence of caps, crowns, dentures, partials, and ability to extend neck assessed. AIRWAY ASSESSMENT: Yes MALLAMPATI SCORE MALLAMPATI SCORE: II PRE-SEDATION ASSESSMENT PRE-SEDATION ASSESSMENT: Yes XIN JOHN MD May 18, 2018 10:25
[2018-05-18] MEDS ORDERED: ACETAMINOPHEN 325 MG TABLET. PO PRN (10:30)
[2018-05-18] MEDS ORDERED: NITROGLYCERIN SUBLINGUAL 0.4 MG BOTTLE OF 25. SL PRN (10:30)
--- NOTE | 2018-05-18 10:39 | CARD ---
MR#: [id number] Date of Study: 05/18/2018 Ordering Physician: XIN GOODRICH, Referring Physician: XIN GOODRICH Tech: RT Sidney (R) APPROVED REPORT Patient StatusOUT-PATIENT Physician In Private Practice: RT Sidney (R) Procedure(s) performed: 1. Aortogram with bilateral lower extremity runoff 2. Successful orbital atherectomy/SENIOR HYDROGEOLOGIST to the right popliteal artery and tibioperoneal trunk and succ essful balloon SENIOR HYDROGEOLOGIST to the right superficial femoral artery Moderate sedation: 94 minutes INDICATION FOR PROCEDURE The indication(s) include : Peripheral artery disease with claudication. PROCEDURE NARRATIVE After explaining the risks, benefits and alternative options, informed consent was obtained from rei ent. Patient was brought to the cardiac Seeing Eye Dog Trainer and both his groins were prepped and draped in the u sual fashion. 20 mL of 2% lidocaine was infiltrated into the skin and subcutaneous drain is tissues o f the right groin for local anesthesia. Arterial access was obtained in the right common femoral tyler ry and a 5 Thai sheath was inserted. 5 Thai pigtail catheter was used to perform aortogram with b ilateral lower extremity runoff. The following findings were noted. FINDINGS 1. 30% stenosis involving the distal descending aorta 2. No significant stenosis involving bilateral common and external iliac arteries 3. No significant stenosis involving bilateral common femoral arteries 4. The right superficial femoral artery showed 60-70% stenosis in the proximal segment with signific ant pullback gradient across the lesion of 23 mmHg. The left superficial femoral artery showed 30% st enosis in the proximal and mid segments and 50% stenosis in the distal segment. 5. The left popliteal artery did not show any significant stenosis. The right popliteal artery showe d 90% stenosis in the distal segment. 6. There is two-vessel runoff below the knee left lower extremity with 100% chronic total occlusion involving the proximal segment of the left anterior tibial artery. 7. The right anterior tibial artery showed high percent chronic total occlusion involving the proxim al segment. The tibioperoneal trunk showed 70-80% calcified stenosis. The posterior tibial and perone al arteries did not show any significant stenosis. INTERVENTION Since patient had significant stenoses involving the right lower extremity, a decision was made to ac cess the left groin for percutaneous intervention. The arteriotomy site in the right common femoral a rtery was closed with mynx closure device. Subsequently, 10 mL of 2% lidocaine was infiltrated into t he skin and subcutaneous tennis tissues of the left groin for local anesthesia. Arterial access was o btained in the left common femoral artery and a 6 Thai 65 cm destination sheath was inserted and wi th the help of a crossover catheter, this was advanced over the aortic rudy and the tip was positio herminio in the proximal segment of the right superficial femoral artery. The lesions in the SFA, poplitea l and tibioperoneal trunk were crossed with viper guidewire. Multiple orbital atherectomy passes were then performed within the lesions in the distal segment of the popliteal artery and also the tibiope roneal trunk using CSI 1.25 solid diamondback atherectomy jessica. The tibioperoneal trunk was then dila lincoln with a 4.0 x 40 mm Amanda Peterman balloon. The popliteal artery was dilated with a 5.0 x 40 mm Abb louie Peterman balloon. The superficial femoral artery was dilated with a 6.0 x 40 mm Amanda Peterman ballo on. Follow-up angiography showed resolution of the stenoses with good distal flow. Patient tolerated the procedure well. Hemostasis in the left groin was achieved using Perclose suture closure device. T here were no immediate complications. Conclusion Successful orbital atherectomy/SENIOR HYDROGEOLOGIST to right popliteal artery and the tibioperoneal trunk and successf ul balloon SENIOR HYDROGEOLOGIST to the right superficial femoral artery Recommendations Vascular risk factor modification Signed by : Xin Goodrich, Electronically Approved : 05/18/2018 10:38:45
[2018-05-18] MEDS: IV 1/2 NORMAL SALINE 1,000 ML IV SCH ×2 (11:27→21:33)
[2018-05-18] MEDS ORDERED: ALPR0.5T6 PO ×2 (12:04)
[2018-05-18] MEDS ORDERED: CITA40TA12 PO (12:04)
--- NOTE | 2018-05-18 12:06 | NUR ---
SS following for discharge planning. SS reviewed pt chart. Pt is from home with spouse and is currently requiring oxygen. No discharge needs noted at this time. SS will continue to follow for pending discharge needs.
[2018-05-18] MEDS ORDERED: NON FORMULARY ITEM (Albuterol Sulfate (Proair Respiclick) 2 PUFF) IH PRN (12:15)
[2018-05-18] MEDS ORDERED: CARISOPRODOL 350 MG PO PRN (12:15)
[2018-05-18] MEDS ORDERED: FUROSEMIDE 40 MG TABLET. PO PRN (12:15)
[2018-05-18] MEDS ORDERED: ALPRAZolam 0.5 MG TABLET PO PRN (12:15)
[2018-05-18] MEDS ORDERED: ALBUTEROL SULFATE 2.5 MG/3 ML NEBU. NEB PRN (12:30)
[2018-05-18] MEDS: ALPRAZolam 0.5 MG TABLET PO PRN ×2 (13:26→20:38)
[2018-05-18] MEDS: clonazePAM 0.5 MG TABLET PO SCH (13:26)
[2018-05-18] MEDS: cloNIDine HCL 0.2 MG TABLET PO SCH ×2 (13:28→20:35)
[2018-05-18] MEDS: busPIRone 5 MG TABLET. PO SCH (13:28)
[2018-05-18] MEDS: IPRATRPIUM/ALBUTEROL 0.5/2.5MG 3 ML NEBU. NEB SCH ×2 (15:39→19:15)
[2018-05-18] MEDS: busPIRone 10 MG TABLET. PO SCH (20:33)
[2018-05-18] MEDS: PROPAFENONE 150 MG TABLET. PO SCH (20:34)
[2018-05-18] MEDS ORDERED: ALLOPURINOL 300 MG TABLET. PO SCH (21:00)
[2018-05-18] MEDS ORDERED: ATORVASTATIN CALCIUM 10 MG TABLET. PO SCH (21:00)
[2018-05-18] MEDS ORDERED: AMITRIPTYLINE HCL 25 MG TABLET. PO SCH (21:00)
[2018-05-18] MEDS ORDERED: ALLOPURINOL 100 MG TABLET. PO SCH (21:00)
[2018-05-19 02:49] VITALS: BP 117/70
[2018-05-19] MEDS ORDERED: LEVOTHYROXINE 50 MCG TABLET PO SCH (06:00)
[2018-05-19] MEDS: IV 1/2 NORMAL SALINE 1,000 ML IV SCH (06:40)
[2018-05-19 07:00] VITALS: BP 138/76
[2018-05-19] MEDS: IPRATRPIUM/ALBUTEROL 0.5/2.5MG 3 ML NEBU. NEB SCH ×2 (07:43→10:44)
[2018-05-19] MEDS ORDERED: CLOPIDOGREL BISULFATE 75 MG TABLET PO SCH ×2 (08:00→09:00)
[2018-05-19] MEDS ORDERED: ASPIRIN ENTERIC COATED 81 MG TABLET.DR. PO SCH (08:00)
[2018-05-19] MEDS ORDERED: amLODIPine BESYLATE 5 MG TABLET PO SCH (09:00)
[2018-05-19] MEDS ORDERED: clonazePAM 0.5 MG TABLET PO SCH (09:00)
[2018-05-19] MEDS ORDERED: CITALOPRAM 20 MG TABLET. PO SCH (09:00)
[2018-05-19] MEDS ORDERED: predniSONE 5 MG TABLET PO SCH (09:00)
[2018-05-19] MEDS ORDERED: LISINOPRIL 20 MG TABLET PO SCH (09:00)
[2018-05-19] MEDS ORDERED: NON FORMULARY ITEM (Tiotropium Bromide (Spiriva) 2 INH) IH SCH (09:00)
[2018-05-19] MEDS: cloNIDine HCL 0.2 MG TABLET PO SCH (09:01)
[2018-05-19] MEDS: PROPAFENONE 150 MG TABLET. PO SCH (09:03)
--- NOTE | 2018-05-19 10:08 | PDOC3 ---
SARAH MARIE LOOPER OPERATOR 05/19/18 1008: Discharge Summary Visit Information Date of Admission: May 18, 2018 Date of Discharge: May 19, 2018 Admitting Diagnosis: Severe PAD with claudication Final Diagnosis S/P percutaneous revascularization to RLE, Severe PAD with claudication, CAD Brief Hospital Course Allergies Allergies Coded Allergies Type Severity Reaction Last Updated Verified tamsulosin Adverse Reaction Intermediate Nausea and Vomiting 03/11/18 Yes Vital Signs Vital Signs Date Time Temp Pulse Resp B/P (MAP) Pulse Ox O2 Delivery O2 Flow Rate FiO2 05/19/18 09:03 75 138/76 05/19/18 07:48 98 Nasal Cannula 2.0 05/19/18 07:00 98.2 18 98.2 Lab Results Laboratory Tests Test 05/18/18 07:35 White Blood Count 8.4 x10^3/uL (4.0-11.0) Red Blood Count 4.29 x10^6/uL (4.30-5.70) Hemoglobin 14.4 g/dL (13.0-17.5) Hematocrit 42.6 % (39.0-53.0) Mean Corpuscular Volume 99 fL (79-100) Mean Corpuscular Hemoglobin 34 pg (25-35) Mean Corpuscular Hemoglobin Concent 34 g/dL (31-37) Red Cell Distribution Width 15.2 % (11.5-14.5) Platelet Count 133 x10^3/uL (140-400) Prothrombin Time 14.0 SEC (11.7-14.0) Prothromb Time International Ratio 1.1 (0.8-1.1) Sodium Level 142 mmol/L (136-145) Potassium Level 3.5 mmol/L (3.5-5.1) Chloride Level 102 mmol/L (98-107) Carbon Dioxide Level 29 mmol/L (21-32) Anion Gap 11 (6-14) Blood Urea Nitrogen 17 mg/dL (8-26) Creatinine 1.1 mg/dL (0.7-1.3) Estimated GFR (Cockcroft-Gault) 66.0 Glucose Level 111 mg/dL (70-99) Calcium Level 9.4 mg/dL (8.5-10.1) Brief Hospital Course Mr. Tillman is a 72 old male admitted for planned femoral runoff with HAIRCUTTER. As an outpt he was noted with severe PAD with symptoms of claudications. He tolerated the procedure well with s/p orbital atherectomy/HAIRCUTTER to the right popliteal artery and the tibioperoneal trunk. Both groin was accessed and arteriotomy sites are intact with mild bruising but no swelling or hematoma and bilateral LE neurovascular status intact. SR without significant ectopies and VSS. There is questionable purpose on rythmol and this is also contraindicated for structural heart disease and CAD. This was clarified and pt is unaware of hx of AFIB and no previous anticoagulation. Will DC rythmol and pt has been instructed in regards to outpt event monitor to ascertain any AFIB burden moving forward. Continue with ASA and plavix and secondary prevention measures. Follow up in office in 4-5 weeks. Discharge Information Condition at Discharge: Stable Follow Up: Weeks (4) Disposition/Orders: D/C to Home Scheduled Allopurinol (Allopurinol) 300 Mg Tablet, 1 TAB PO HS, (Reported) Entered as Reported by: BAM EMNDOSA on 05/11/15 1525 Last Taken: Unknown Dose on 05/17/18 Last Action: Continued on 05/18/18 1209 by MATIAS MAGANA Allopurinol (Allopurinol) 100 Mg Tablet, 1 TAB PO QHS for GOUT, (Reported) Entered as Reported by: ANG ENNIS on 08/15/15 1257 Last Taken: Unknown Dose on 05/17/18 Last Action: Continued on 05/18/18 1209 by MATIAS MAGANA Amitriptyline Hcl (Amitriptyline Hcl) 25 Mg Tablet, 25 MG PO HS, (Reported) Entered as Reported by: BETH PELLETIER on 06/21/13 1325 Last Taken: Unknown Dose on 05/17/18 Last Action: Continued on 05/18/18 1209 by MATIAS MAGANA Amlodipine Besylate (Amlodipine Besylate) 5 Mg Tablet, 5 MG PO DAILY, (Reported) Entered as Reported by: LETICIA RUTH on 05/14/16 1449 Last Taken: Unknown Dose on 05/18/18 Last Action: Continued on 05/18/18 1209 by MATIAS MAGANA Aspirin (Aspirin Ec) 81 Mg Tablet., 1 TAB PO DAILY for PAD, #30 Ref 3 Prescribed by: SARAH MARIE on 05/19/18 1013 Atorvastatin Calcium (Atorvastatin Calcium) 10 Mg Tablet, 10 MG PO HS for FOR CHOLESTEROL, (Reported) Entered as Reported by: LETICIA RUTH on 07/25/15 1258 Last Taken: Unknown Dose on 05/17/18 Last Action: Continued on 05/18/181208 by MATIAS MAGANA Buspirone Hcl (Buspirone Hcl) 5 Mg Tablet, 5 MG PO DAILYBFRLUN for anxiety, ( Reported) Entered as Reported by: LETICIA RUTH on 05/14/16 1449 Last Taken: Unknown Dose on 05/17/18 1100 Last Action: Continued on 05/18/181208 by MATIAS MAGANA Buspirone Hcl (Buspirone Hcl) 10 Mg Tablet, 10 MG PO HS for anxiety, (Reported) Entered as Reported by: THADDEUS HOLBROOK on 02/09/18 1414 Last Taken: Unknown Dose on 05/17/18 Last Action: Continued on 05/18/181208 by MATIAS MAGANA Citalopram Hydrobromide (Celexa) 40 Mg Tablet, 20 MG PO DAILY for anxiety, ( Reported) Entered as Reported by: MATIAS MAGANA on 05/18/18 1204 Last Action: Converted on 05/18/181208 by MATIAS MAGANA Clonazepam (Clonazepam) 0.5 Mg Tablet, 1 TAB PO DAILY for ANXIETY, #30 (Reported ) Entered as Reported by: TODD HERNÁNDEZ on 03/03/18 1404 Last Taken: Unknown Dose on 05/18/18 0700 Last Action: Continued on 05/18/181208 by MATIAS MAGANA Clonazepam (Clonazepam) 0.5 Mg Tablet, 0.5 TAB PO DAILY AT 1200 PM for ANXIETY, #30 (Reported) Entered as Reported by: TODD HERNÁNDEZ on 03/03/18 1405 Last Taken: Unknown Dose on 05/17/18 1200 Last Action: Continued on 05/18/181208 by MATIAS MAGANA Clonidine Hcl (Clonidine Hcl) 0.2 Mg Tablet, 0.2 MG PO TID for hypertension, ( Reported) Entered as Reported by: LETICIA RUTH on 05/14/16 1449 Last Taken: Unknown Dose on 05/18/18 Last Action: Continued on 05/18/181208 by MATIAS MAGANA Clopidogrel Bisulfate (Clopidogrel) 75 Mg Tablet, 75 MG PO DAILY for TO PREVENT BLOOD CLOTS, (Reported) Entered as Reported by: LETICIA RUTH on 05/14/16 144 Last Taken: Unknown Dose on 05/18/18 Last Action: Continued on 05/18/181208 by MATIAS MAGANA Levothyroxine Sodium (Synthroid) 50 Mcg Tablet, 1 TAB PO DAILY06 for hypothyroid , (Reported) Entered as Reported by: LETICIA RUTH on 05/14/16 144 Last Taken: Unknown Dose on 05/18/18 Last Action: Converted on 05/18/181208 by MATIAS MAGANA Lisinopril/Hydrochlorothiazide (Lisinopril-Hctz 20-12.5 Mg Tab) 1 Each Tablet, 1 TAB PO DAILY for htn, #30 Ref 5 (Reported) Entered as Reported by: ANG ENNIS on 05/18/18 0825 Last Taken: Unknown Dose on 05/18/18 Last Action: Converted on 05/18/181208 by MATIAS MAGANA Prednisone (Prednisone) 2.5 Mg Tablet, 5 MG PO DAILY for lung inflammation, ( Reported) Entered as Reported by: THADDEUS HOLBROOK on 02/09/18 141 Last Taken: Unknown Dose on 05/18/18 Last Action: Converted on 05/18/181208 by MATIAS MAGANA Tiotropium [place] (Spiriva) 18 Mcg Cap.w.dev, 2 INH IH DAILY for shortness of air, #1 Ref 0 (Reported) Entered as Reported by: THADDEUS HOLBROOK on 02/09/18 141 Last Action: Converted on 05/18/181208 by MATIAS MAGANA Scheduled PRN Albuterol Sulfate (Proair Respiclick) 90 Mcg Aer.pow.ba, 2 PUFF IH PRN Q6HRS PRN for SHORTNESS OF BREATH, (Reported) Entered as Reported by: TODD HERNÁNDEZ on 03/03/18 1406 Last Action: Converted on 05/18/181208 by MATIAS MAGANA Alprazolam (Alprazolam) 0.5 Mg Tablet, 0.25 MG PO TID PRN for ANXIETY / AGITATION, Ref 0 (Reported) Entered as Reported by: MATIAS MAGANA on 05/18/181203 Last Action: Continued on 05/18/181208 by MATIAS MAGANA Alprazolam (Alprazolam) 0.5 Mg Tablet, 0.5 MG PO PRN DAILY PRN for ANXIETY / AGITATION, Ref 0 (Reported) Entered as Reported by: MATIAS MAGANA on 05/18/181203 Last Taken: Unknown Dose on 05/17/18 Last Action: Continued on 05/18/181208 by MATIAS MAGANA Carisoprodol (Carisoprodol) 350 Mg Tablet, 350 MG PO TID PRN for MUSCLE SPASMS, (Reported) Entered as Reported by: LETICIA RUTH on 05/14/161448 Last Action: Converted on 05/18/181208 by MATIAS MAGANA Furosemide (Lasix) 40 Mg Tablet, 40 MG PO PRN DAILY PRN for chf, (Reported) Entered as Reported by: LETICIA RUTH on 05/14/161448 Last Taken: Unknown Dose on 05/15/18 Last Action: Continued on 05/18/181208 by MATIAS MAGANA Discontinued Medications Alprazolam (Alprazolam) 0.25 Mg Tablet, 0.25 MG PO QID PRN for ANXIETY / AGITATION, (Reported) Discontinued Reason: Prescription changed Entered as Reported by: BETH PELLETIER on 06/21/13 1325 Citalopram Hydrobromide (Celexa) 20 Mg Tablet, 20 MG PO DAILY PRN for ANXIETY / AGITATION, (Reported) Discontinued Reason: Prescription changed Entered as Reported by: BETH PELLETIER on 06/21/13 1325 Propafenone Hcl (Propafenone Hcl) 150 Mg Tablet, 75 MG PO BID PRN for SEE COMMENTS, (Reported) leg swelling Entered as Reported by: LETICIA RUTH on 05/14/16 144 Last Action: Converted on 05/18/181208 by MATIAS MAGANA Patient Instructions Patient Instructions GENERAL INSTRUCTIONS: 1. Your dressing should be removed prior to leaving the hospital. 2. It is OK to shower the day after your procedure. 3. If you received stents, be sure to carry your stent information card with you in your wallet/purse at all times. 4. Call the office immediately at [phone] if you notice any fever or if there is redness, worsening tenderness/pain, increased bruising, or drainage from the puncture site. 5. Should you have bleeding from the site, lie down immediately & put pressure on the site. The pressure should be hard enough to stop the bleeding. Have the nearest person call 911. DO NOT try to drive to the ER with active bleeding. 6. If you notice a change in color, coolness to touch, or loss of feeling in the affected extremity, come to the emergency room. Please have someone drive you or call 911 if no one is available. DO NOT drive yourself. 7. If you normally take glucophage (metformin), please do not take this medicine for 48 hours following your procedure. 8. DO NOT STOP TAKING YOUR PLAVIX OR ASPIRIN UNLESS IT IS CLEARED BY A CLOTH CLASSER OF YOUR JAVA J2EE APPLICATION DEVELOPER AT OUR OFFICE. 9. QUIT SMOKING: the [employer], [employer], & [employer] have cessation resources available on their websites 10. Please have someone available to drive you home from the hospital as you may be limited by sedation medications given during the procedure. Femoral (Groin) access: 1. Do no lifting, pushing, pulling, bending, stooping, or recurrent stair climbing for 3 days following your procedure. 2. Once past the first 3 days, do not do any HEAVY exertion or lifting for one week following the procedure. No gym workouts, running, lifting greater than a gallon of milk, etc 3. Do not submerge in bath or pool for one week. OK to drive 3 days following your procedure, but if going long distance, do not go alone & take hourly breaks to get out of car and walk around. Call the office at [phone] for any questions or concerns. XIN JOHN MD 05/19/18 1423: Discharge Summary Brief Hospital Course Brief Hospital Course Patient seen and examined. Agree with SENIOR COMMUNICATIONS ENGINEER's assessment and plan. s/p orbital atherectomy/HAIRCUTTER to the right popliteal artery and the tibioperoneal trunk, with improvement in claudication per patient Groin access sites looked good Telemetry without any significant arrhythmias DC home today and follow-up with our office in 1 month. SARAH MARIE APRN May 19, 2018 10:08 XIN JOHN MD May 19, 2018 14:23
[2018-05-19] MEDS ORDERED: ASPI-612 PO (10:13)
[2018-05-19 11:00] VITALS: BP 130/66
[2018-05-19] MEDS: busPIRone 10 MG TABLET. PO SCH (12:03)
[2018-05-19] MEDS: clonazePAM 0.5 MG TABLET PO SCH (12:03)
[2018-05-19] MEDS: busPIRone 5 MG TABLET. PO SCH (12:06)
--- NOTE | 2018-05-19 13:00 | NUR ---
Discharge Note: KRYSTIAN VELEZ [address] Discharge instructions and discharge home medications reviewed with Spouse and a copy given. All questions have been answered and understanding verbalized. The following instructions and handouts were given: Peripheral vascular disease, angiography post-care. Discontinued lines and drains: R peripheral IV discontinued, catheter tip intact, no bleeding or bruising. Patient discharged to home for self-care, with a stop at Dr. Goodrich's office to be hooked up to cardiac monitoring for 4 weeks. Next fup appt is set for 07/09/18@0830am.
== END 2018-05-19 13:00 | disposition home or self-care (01) ==
LOC: CCL 06:45 → 2 SOUTH 09:20 → INTOOBSV 09:20
PROVIDERS: ADMIT Internal Medicine Cardiovascular Disease; ATTEND Internal Medicine Cardiovascular Disease
DX: I73.9 Peripheral vascular disease, unspecified (principal); I25.10 Atherosclerotic heart disease of native coronary artery without angina pectoris; I48.91 Unspecified atrial fibrillation; I10 Essential (primary) hypertension; E03.9 Hypothyroidism, unspecified; J44.9 Chronic obstructive pulmonary disease, unspecified; I25.2 Old myocardial infarction; G47.33 Obstructive sleep apnea (adult) (pediatric); Z87.442 Personal history of urinary calculi; Z95.1 Presence of aortocoronary bypass graft; Z85.46 Personal history of malignant neoplasm of prostate; Z98.890 Other specified postprocedural states; Z87.891 Personal history of nicotine dependence; E78.5 Hyperlipidemia, unspecified
CPT/HCPCS: 36415; 37224; 37229; 75630; 80048; 85027; 85610; 94640; 94760; 96365; 96375; C1713; C1724; C1769; C1771; C1885; C1892; G0269; G0378; G0379; J1644; J2250; J3010; J3490; J7030; J7512; J7620; 99152; 99153; C1760; Q9967

== ENCOUNTER 2018-05-28 19:43 | Emergency (ER) | payer MEDICARE ==
[~2018-05-28 19:43] MED LIST changes: +ALPR0.5T6 PO; +AMIODARONE 150 MG/3 ML VIAL ONE; +ATROPINE 1 MG/10 ML DISP.SYRINGE. ONE; +CALCIUM CHLORIDE 1,000 MG/10 ML DISP.SYRIN ONE; +CITA40TA12 PO; +EPINEPHrine SYRINGE 1 MG/10 ML SYRINGE ONE; +SODIUM BICARB ADULT 8.4% 50 MEQ/50 ML DISP.SYRIN. ONE
--- NOTE | 2018-05-28 21:37 | PHYS DOC ---
Past Medical History Past Medical History: Anxiety, Cancer, CHF, COPD, Hypertension, Hypothyroid, Kidney Stone, [place], Vascular Disease, Other Additional Past Medical Histor: PROSTATE CA, GOUT Past Surgical History: Coronary Bypass Surgery, Other Additional Past Surgical Histo: STENTS, right shoulder surgery Alcohol Use: Rarely Drug Use: None Adult General Chief Complaint Chief Complaint: CPR/FULL ARREST HPI HPI Patient is a 72-year-old male who arrives to emergency room via POV with report of shortness of breath at home. Number time patient had arrived to the emergency room, patient had stopped breathing and was brought in witnessed arrest. indicates that patient had difficulty in getting to the car and while in route he was moaning. Just a few minutes prior to getting to the emergency room she believes that he had stopped breathing. She states that she had wanted to call EMS earlier in the day but he had refused. She does indicate that patient has had a cough and she states the cough is been productive of bloody sputum. Patient just recently had lower extremity venous procedure performed with Dr. Goodrich. Review of Systems Review of Systems Constitutional: No reported fever or chills [] Respiratory: Positive reported cough and shortness of breath [] Cardiovascular: No additional information not addressed in HPI [] GI: No reported vomiting or diarrhea [] Unable to fully assess review of systems due to severity of patient condition. Allergies Allergies Allergies Coded Allergies Type Severity Reaction Last Updated Verified tamsulosin Adverse Reaction Intermediate Nausea and Vomiting 03/11/18 Yes Physical Exam Physical Exam Constitutional: Patient unresponsive to both verbal and painful stimuli. [] HENT: Normocephalic, atraumatic, bilateral external ears normal, oropharynx moist, no oral exudates, nose normal. [] Eyes: Pupils fixed and dilated. [] Neck: Supple. No JVD. [] Cardiovascular: No spontaneous heart tones[] Lungs & Thorax: No spontaneous respirations. Breath sounds clear bilaterally with bagged respirations[] Abdomen: Bowel sounds are absent, soft. [] Skin: Warm, dry, mottled appearance. [] Extremities: No clubbing, lower extremity edema is present. [] Neurologic: Unresponsive to both verbal and painful stimuli. [] EKG EKG [] Radiology/Procedures Radiology/Procedures [] Course & Med Decision Making Course & Med Decision Making Pertinent Labs and Imaging studies reviewed. (See chart for details) Cardiopulmonary Resuscitation by me: See code documentation for specific details. ACLS and BLS were performed with high quality chest compressions and minimal interruptions. Reversible causes were assessed and treated. Patient ultimately pronounced at 8:15 PM on May 28, 2018. A total of 35 minutes of critical care time was spent on this patient and was inclusive of direct [id number] time, discussion of patient's case with consultants, and on documentation of this patient's medical record. Dragon Disclaimer Dragon Disclaimer This electronic medical record was generated, in whole or in part, using a voice recognition dictation system. Departure Departure Impression: Primary Impression: Cardiopulmonary arrest Disposition: 20 Condition: Referrals: MAYE WHITT MD (PCP) MIRA ESPINOZA Jr. DO May 28, 2018 21:37
[2018-05-28 23:19] LABS: CREATININE ISTAT 1.3 mg/dL (0.5-1.4); HEMOGLOBIN ISTAT 13.3 g/dL (14-18); ION CA ISTAT 1.18 mmol/L (1.13-1.32); POTASSIUM ISTAT 4.6 mmol/L (3.5-5.0)
== END 2018-05-28 21:39 | disposition expired ==
LOC: ER 19:43
DX: I46.9 Cardiac arrest, cause unspecified (principal); F41.9 Anxiety disorder, unspecified; I11.0 Hypertensive heart disease with heart failure; I50.9 Heart failure, unspecified; J44.9 Chronic obstructive pulmonary disease, unspecified; E03.9 Hypothyroidism, unspecified; I25.2 Old myocardial infarction; Z95.1 Presence of aortocoronary bypass graft; Z88.8 Allergy status to other drugs, medicaments and biological substances; Z87.442 Personal history of urinary calculi
CPT/HCPCS: 80047; 82962; 84484; 92950; 99291; J0171; J0282; J0461; J3490